=== PATIENT | female | born 1970 | race Caucasian/White ===

== ENCOUNTER 2019-09-06 09:45 | Inpatient (IN) | payer OTHER ==
--- NOTE | 2019-09-06 10:03 | BHS.RME ---
Substance Use & Tx History - Substance Use History Alcohol Substance amount: 1 pint vodka and beers Frequency of use: Daily Substance route: Oral Date of Last Use: 09/06/19 Cocaine-Crack Substance amount: $50 Frequency of use: Daily Substance route: Smoking Date of Last Use: 09/05/19 Nicotine Substance amount: 1 pack Frequency of use: Daily Substance route: Smoking Date of Last Use: 09/06/19 CIWA Nausea/Vomitin-Int. Nausea w/Dry Heave Muscle Tremors: 2 Anxiety: 2 Agitation: 2 Paroxysmal Sweats: 1-Minimal Palms Moist Orientation: 0-Oriented Tacttile Disturbances: 1-Very Mild Itch/Numbness Auditory Disturbances: 0-None Visual Disturbances: 0-None Headache: 2-Mild CIWA-Ar Total Score: 14
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
[2019-09-06] MEDS ORDERED: ACETAMINOPHEN 325 MG TABLET (FP) PO PRN (11:39)
[2019-09-06] MEDS ORDERED: MAGNESIUM CITRATE 300 ML BOTTLE PO PRN (11:39)
[2019-09-06] MEDS ORDERED: NICOTINE POLACRILEX 2 MG GUM BUC PRN (11:39)
[2019-09-06] MEDS ORDERED: IBUPROFEN 400 MG TABLET (FP) PO PRN (11:39)
[2019-09-06] MEDS ORDERED: BISMUTH SUBSALICYLATE 524 MG/30 ML UD PO PRN (11:39)
[2019-09-06] MEDS ORDERED: METHOCARBAMOL 500 MG TABLET PO PRN (11:39)
[2019-09-06] MEDS ORDERED: MAG HYDROX/AL HYDROX/SIMETH 30 ML UNIT-DOSE CUP PO PRN (11:39)
[2019-09-06] MEDS ORDERED: chlordiazePOXIDE HCL 25 MG CAPSULE PO PRN (11:39)
[2019-09-06] MEDS ORDERED: MENTHOL/PHENOL 1 EACH UD MM PRN (11:39)
[2019-09-06] MEDS ORDERED: MAGNESIUM HYDROX 2400MG/30ML ORAL SUSPENSION 30 ML CUP PO PRN (11:39)
[2019-09-06 12:10] VITALS: BMI 17.7
[2019-09-06] MEDS: PRENATAL VITAMINS W/ FOLIC ACID TABLET (FP) PO SCH (12:56)
[2019-09-06] MEDS: NICOTINE 21 MG/24 HOURS TOPICAL PATCH TD SCH (13:12)
--- NOTE | 2019-09-06 13:16 | EKG ---
Test Reason : Blood Pressure : / mmHG Vent. Rate : 084 BPM Atrial Rate : 084 BPM P-R Int : 166 ms QRS Dur : 098 ms QT Int : 366 ms P-R-T Axes : 069 068 068 degrees QTc Int : 432 ms NORMAL SINUS RHYTHM EARLY REPOLARIZATION NO PREVIOUS ECGS AVAILABLE Confirmed by CHRISTIANO PEREZ MD ([id number]) on 09/06/2019 1:16:13 PM Referred By: Confirmed By:CHRISTIANO PEREZ MD
[2019-09-06] MEDS ORDERED: hydrOXYzine PAMOATE 25 MG CAPSULE (FP) PO SCH (14:00)
[2019-09-06 14:22] LABS: HEMATOCRIT 33.4 % (32.4-45.2); HEMOGLOBIN 10.8 GM/dL (10.7-15.3); MCH 27.6 pg (25.7-33.7); MCHC 32.2 g/dl (32.0-36.0); MEAN CELL VOLUME 85.5 fl (80-96); MEAN PLT VOLUME 8.1 fl (7.5-11.1); PLATELET COUNT 264 K/MM3 (134-434); RDW 15.5 % (11.6-15.6); WHITE BLOOD COUNT 6.2 K/mm3 (4.0-10.0)
[2019-09-06 14:32] LABS: ALBUMIN 3.7 g/dl (3.4-5.0); CALCIUM 8.5 mg/dL (8.5-10.1); CREATININE 0.6 mg/dL (0.55-1.3); POTASSIUM 3.2 mmol/L (3.5-5.1); TOT PROT 6.6 g/dl (6.4-8.2)
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
[2019-09-06] MEDS ORDERED: hydrOXYzine PAMOATE 25 MG CAPSULE (FP) PO PRN (15:31)
[2019-09-06] MEDS: chlordiazePOXIDE HCL 25 MG CAPSULE PO SCH ×2 (18:23→22:11)
[2019-09-06] MEDS: ACETAMINOPHEN 325 MG TABLET (FP) PO PRN (18:25)
[2019-09-06] MEDS ORDERED: MELATONIN 5 MG TABLETS PO SCH (22:00)
[2019-09-06] MEDS: THIAMINE HCL 100 MG TABLET (FP) PO SCH (22:11)
[2019-09-06] MEDS: MELATONIN 5 MG TABLETS PO PRN (22:11)
[2019-09-07] MEDS: chlordiazePOXIDE HCL 25 MG CAPSULE PO SCH ×4 (05:39→22:44)
[2019-09-07] MEDS: PRENATAL VITAMINS W/ FOLIC ACID TABLET (FP) PO SCH (10:25)
[2019-09-07] MEDS: NICOTINE 21 MG/24 HOURS TOPICAL PATCH TD SCH (10:25)
[2019-09-07] MEDS ORDERED: POTASSIUM CHLORIDE TABS 20 MEQ TABLET.ER (FP) PO ONE (11:07)
[2019-09-07] MEDS: ONDANSETRON *ODT* 4 MG TABLET SL PRN ×2 (11:44→16:30)
[2019-09-07 13:54] LABS: PH,URINE 5.5 (5.0-8.0); URINE APPEARANCE Clear; URINE BILIRUBIN Negative (NEGATIVE); URINE COLOR Yellow; URINE GLUCOSE (UA) Negative (NEGATIVE); URINE KETONE Negative (NEGATIVE); URINE LEUK ESTERASE Negative (NEGATIVE); URINE NITRITE Positive (NEGATIVE); URINE PROTEIN Negative (NEGATIVE); URINE UROBILINOGEN 0.2 mg/dL (0.2-1.0)
[2019-09-07] MEDS ORDERED: TRIMETHOBENZAMIDE HCL 200MG/2ML INJ IM ONE (17:38)
--- NOTE | 2019-09-07 17:41 | PN ---
S CIWA - CIWA Score Nausea/Vomitin Muscle Tremors: 2 Anxiety: 3 Agitation: 2 Paroxysmal Sweats: No Perspiration Orientation: 0-Oriented Tacttile Disturbances: 0-None Auditory Disturbances: 0-None Visual Disturbances: 0-None Headache: 0-None Present CIWA-Ar Total Score: 9 BHS Progress Note (SOAP) Subjective: Anxious, Sweating, Tremors. Objective: Patient A & O X 3, Observed Ambulating on Detox Unit Unassisted. In No Acute Distress. 09/07/19 17:39 Vital Signs Temperature 97.7 F 09/07/19 12:45 Pulse Rate 80 09/07/19 12:45 Respiratory Rate 20 09/07/19 12:45 Blood Pressure 103/64 09/07/19 12:45 O2 Sat by Pulse Oximetry (%) 100 09/07/19 12:45 Laboratory Tests 09/06/19 09/06/19 09/06/19 12:05 12:05 12:05 WBC 6.2 RBC 3.90 Hgb 10.8 Hct 33.4 MCV 85.5 MCH 27.6 MCHC 32.2 RDW 15.5 Plt Count 264 MPV 8.1 Sodium 147 H Potassium 3.2 L Chloride 116 H Carbon Dioxide 20 L Anion Gap 12 BUN 10.0 Creatinine 0.6 Est GFR (CKD-EPI)AfAm 126.69 Est GFR (CKD-EPI)NonAf 109.31 Random Glucose 55 L Calcium 8.5 Total Bilirubin 1.0 AST 20 ALT 24 Alkaline Phosphatase 67 Total Protein 6.6 Albumin 3.7 Urine Color Urine Appearance Urine pH Ur Specific [place] Urine Protein Urine Glucose (UA) Urine Ketones Urine Blood Urine Nitrite Urine Bilirubin Urine Urobilinogen Ur Leukocyte Esterase Syphilis Serology Non-reactive HIV Ag/Ab Combo Qual 09/07/19 09/07/19 06:00 10:10 WBC RBC Hgb Hct MCV MCH MCHC RDW Plt Count MPV Sodium Potassium Chloride Carbon Dioxide Anion Gap BUN Creatinine Est GFR (CKD-EPI)AfAm Est GFR (CKD-EPI)NonAf Random Glucose Calcium Total Bilirubin AST ALT Alkaline Phosphatase Total Protein Albumin Urine Color Yellow Urine Appearance Clear Urine pH 5.5 Ur Specific [place] 1.020 Urine Protein Negative Urine Glucose (UA) Negative Urine Ketones Negative Urine Blood Trace-intact Urine Nitrite Positive Urine Bilirubin Negative Urine Urobilinogen 0.2 Ur Leukocyte Esterase Negative Syphilis Serology HIV Ag/Ab Combo Qual Negative Lab Results Noted. Assessment: 09/07/19 17:40 WITHDRAWAL SYMPTOMS HYPOKALEMIA UTI 09/07/19 18:12 Plan: Continue Detox. K-dUR, 40 meq orally X 1 dose today, re-check K level tomorrow AM to see for effect. Patient reports sensation of discomfort when urinating over last 2-3 days. UA Nitrite Result noted to be 'Positive.' Macrodantin, 50 mg Q6HPO ordered for treatment of possible UTI. Patient also advised to increase Daily Oral Water Intake.
[2019-09-07] MEDS: ACETAMINOPHEN 325 MG TABLET (FP) PO PRN (22:21)
[2019-09-07] MEDS: THIAMINE HCL 100 MG TABLET (FP) PO SCH (22:44)
[2019-09-08] MEDS: NITROFURANTOIN MACROCRYSTAL 50 MG CAPSULE (FP) PO SCH ×5 (01:29→23:03)
[2019-09-08] MEDS: chlordiazePOXIDE HCL 25 MG CAPSULE PO SCH ×4 (06:06→22:17)
[2019-09-08] MEDS: PRENATAL VITAMINS W/ FOLIC ACID TABLET (FP) PO SCH (10:19)
[2019-09-08] MEDS: NICOTINE 21 MG/24 HOURS TOPICAL PATCH TD SCH (10:19)
--- NOTE | 2019-09-08 16:21 | PN ---
S CIWA - CIWA Score Nausea/Vomitin-Mild Nausea/No Vomiting Muscle Tremors: 2 Anxiety: 2 Agitation: 2 Paroxysmal Sweats: 2 Orientation: 0-Oriented Tacttile Disturbances: 0-None Auditory Disturbances: 0-None Visual Disturbances: 0-None Headache: 0-None Present CIWA-Ar Total Score: 9 BHS Progress Note (SOAP) Subjective: Feels ok, medication is working. Patient not wearing mask but placed mask on when scientific technical writer encouraged her to wear mask. Objective: 09/08/19 16:17 Last Vital Signs Temp Pulse Resp BP Pulse Ox 98.3 F 80 19 99/64 100 09/08/19 12:59 09/08/19 12:59 09/08/19 12:59 09/08/19 12:59 09/08/19 12:59 Laboratory Tests 09/06/19 09/06/19 09/06/19 12:05 12:05 12:05 WBC 6.2 RBC 3.90 Hgb 10.8 Hct 33.4 MCV 85.5 MCH 27.6 MCHC 32.2 RDW 15.5 Plt Count 264 MPV 8.1 Sodium 147 H Potassium 3.2 L Chloride 116 H Carbon Dioxide 20 L Anion Gap 12 BUN 10.0 Creatinine 0.6 Est GFR (CKD-EPI)AfAm 126.69 Est GFR (CKD-EPI)NonAf 109.31 Random Glucose 55 L Calcium 8.5 Total Bilirubin 1.0 AST 20 ALT 24 Alkaline Phosphatase 67 Total Protein 6.6 Albumin 3.7 Urine Color Urine Appearance Urine pH Ur Specific [place] Urine Protein Urine Glucose (UA) Urine Ketones Urine Blood Urine Nitrite Urine Bilirubin Urine Urobilinogen Ur Leukocyte Esterase Syphilis Serology Non-reactive COVID-19 ([facility]) HIV Ag/Ab Combo Qual 09/06/19 09/07/19 09/07/19 14:50 06:00 10:10 WBC RBC Hgb Hct MCV MCH MCHC RDW Plt Count MPV Sodium Potassium Chloride Carbon Dioxide Anion Gap BUN Creatinine Est GFR (CKD-EPI)AfAm Est GFR (CKD-EPI)NonAf Random Glucose Calcium Total Bilirubin AST ALT Alkaline Phosphatase Total Protein Albumin Urine Color Yellow Urine Appearance Clear Urine pH 5.5 Ur Specific [place] 1.020 Urine Protein Negative Urine Glucose (UA) Negative Urine Ketones Negative Urine Blood Trace-intact Urine Nitrite Positive Urine Bilirubin Negative Urine Urobilinogen 0.2 Ur Leukocyte Esterase Negative Syphilis Serology COVID-19 ([facility]) Not detected HIV Ag/Ab Combo Qual Negative 09/08/19 07:30 WBC RBC Hgb Hct MCV MCH MCHC RDW Plt Count MPV Sodium Potassium 3.9 Chloride Carbon Dioxide Anion Gap BUN Creatinine Est GFR (CKD-EPI)AfAm Est GFR (CKD-EPI)NonAf Random Glucose Calcium Total Bilirubin AST ALT Alkaline Phosphatase Total Protein Albumin Urine Color Urine Appearance Urine pH Ur Specific [place] Urine Protein Urine Glucose (UA) Urine Ketones Urine Blood Urine Nitrite Urine Bilirubin Urine Urobilinogen Ur Leukocyte Esterase Syphilis Serology COVID-19 ([facility]) HIV Ag/Ab Combo Qual Labs reviewed: abnormal UA (showing UTI due to + nitrite) Assessment: 09/08/19 16:20 Withdrawal sxs Noted with acute UTI Plan: Continue detox Encourage PO water hydration Acute UTI: already on macrobid, send urine cx
[2019-09-08] MEDS: ACETAMINOPHEN 325 MG TABLET (FP) PO PRN (16:30)
[2019-09-08] MEDS: THIAMINE HCL 100 MG TABLET (FP) PO SCH (22:17)
[2019-09-08] MEDS: MELATONIN 5 MG TABLETS PO PRN (22:18)
[2019-09-09] MEDS ORDERED: chlordiazePOXIDE HCL 10 MG CAPSULE PO PRN
[2019-09-09] MEDS: NITROFURANTOIN MACROCRYSTAL 50 MG CAPSULE (FP) PO SCH ×3 (05:33→18:28)
[2019-09-09] MEDS: chlordiazePOXIDE HCL 10 MG CAPSULE PO SCH ×4 (05:33→23:17)
[2019-09-09] MEDS: NICOTINE 21 MG/24 HOURS TOPICAL PATCH TD SCH (10:24)
[2019-09-09] MEDS: PRENATAL VITAMINS W/ FOLIC ACID TABLET (FP) PO SCH (10:25)
--- NOTE | 2019-09-09 10:46 | PN ---
S CIWA - CIWA Score Nausea/Vomitin-No Nausea/No Vomiting Muscle Tremors: 2 Anxiety: 1-Mildly Anxious Agitation: 1-Slight > Activity Paroxysmal Sweats: No Perspiration Orientation: 0-Oriented Tacttile Disturbances: 0-None Auditory Disturbances: 0-None Visual Disturbances: 0-None Headache: 0-None Present CIWA-Ar Total Score: 4 BHS Progress Note (SOAP) Subjective: feeling much better little anxiety Objective: 09/09/19 10:45 Vital Signs Temperature 96.3 F L 09/09/19 08:36 Pulse Rate 72 09/09/19 08:36 Respiratory Rate 18 09/09/19 08:36 Blood Pressure 118/73 09/09/19 08:36 O2 Sat by Pulse Oximetry (%) 96 09/09/19 06:13 Laboratory Tests 09/06/19 09/06/19 09/06/19 12:05 12:05 12:05 WBC 6.2 RBC 3.90 Hgb 10.8 Hct 33.4 MCV 85.5 MCH 27.6 MCHC 32.2 RDW 15.5 Plt Count 264 MPV 8.1 Sodium 147 H Potassium 3.2 L Chloride 116 H Carbon Dioxide 20 L Anion Gap 12 BUN 10.0 Creatinine 0.6 Est GFR (CKD-EPI)AfAm 126.69 Est GFR (CKD-EPI)NonAf 109.31 Random Glucose 55 L Calcium 8.5 Total Bilirubin 1.0 AST 20 ALT 24 Alkaline Phosphatase 67 Total Protein 6.6 Albumin 3.7 Urine Color Urine Appearance Urine pH Ur Specific [place] Urine Protein Urine Glucose (UA) Urine Ketones Urine Blood Urine Nitrite Urine Bilirubin Urine Urobilinogen Ur Leukocyte Esterase Syphilis Serology Non-reactive COVID-19 ([facility]) HIV Ag/Ab Combo Qual 09/06/19 09/07/19 09/07/19 14:50 06:00 10:10 WBC RBC Hgb Hct MCV MCH MCHC RDW Plt Count MPV Sodium Potassium Chloride Carbon Dioxide Anion Gap BUN Creatinine Est GFR (CKD-EPI)AfAm Est GFR (CKD-EPI)NonAf Random Glucose Calcium Total Bilirubin AST ALT Alkaline Phosphatase Total Protein Albumin Urine Color Yellow Urine Appearance Clear Urine pH 5.5 Ur Specific [place] 1.020 Urine Protein Negative Urine Glucose (UA) Negative Urine Ketones Negative Urine Blood Trace-intact Urine Nitrite Positive Urine Bilirubin Negative Urine Urobilinogen 0.2 Ur Leukocyte Esterase Negative Syphilis Serology COVID-19 ([facility]) Not detected HIV Ag/Ab Combo Qual Negative 09/08/19 07:30 WBC RBC Hgb Hct MCV MCH MCHC RDW Plt Count MPV Sodium Potassium 3.9 Chloride Carbon Dioxide Anion Gap BUN Creatinine Est GFR (CKD-EPI)AfAm Est GFR (CKD-EPI)NonAf Random Glucose Calcium Total Bilirubin AST ALT Alkaline Phosphatase Total Protein Albumin Urine Color Urine Appearance Urine pH Ur Specific [place] Urine Protein Urine Glucose (UA) Urine Ketones Urine Blood Urine Nitrite Urine Bilirubin Urine Urobilinogen Ur Leukocyte Esterase Syphilis Serology COVID-19 ([facility]) HIV Ag/Ab Combo Qual aaox3 ambulating no acute distress Assessment: 09/09/19 10:45 mild withdrawals Plan: continue detox increase fluids
[2019-09-09] MEDS: ONDANSETRON *ODT* 4 MG TABLET SL PRN (17:49)
[2019-09-09] MEDS ORDERED: TRIMETHOBENZAMIDE HCL 200MG/2ML INJ IM PRN (19:05)
[2019-09-09] MEDS: THIAMINE HCL 100 MG TABLET (FP) PO SCH (23:18)
[2019-09-10] MEDS: NITROFURANTOIN MACROCRYSTAL 50 MG CAPSULE (FP) PO SCH ×2 (00:35→05:32)
[2019-09-10] MEDS ORDERED: chlordiazePOXIDE HCL 10 MG CAPSULE PO SCH (05:00)
[2019-09-10 09:51] VITALS: PULSE 83; TEMP 98.3
[2019-09-10] MEDS: NICOTINE 21 MG/24 HOURS TOPICAL PATCH TD SCH (10:16)
[2019-09-10] MEDS: PRENATAL VITAMINS W/ FOLIC ACID TABLET (FP) PO SCH (10:16)
--- NOTE | 2019-09-10 10:58 | PN ---
S CIWA - CIWA Score Nausea/Vomitin-No Nausea/No Vomiting Muscle Tremors: None Anxiety: 1-Mildly Anxious Agitation: 1-Slight > Activity Paroxysmal Sweats: No Perspiration Orientation: 0-Oriented Tacttile Disturbances: 0-None Auditory Disturbances: 0-None Visual Disturbances: 0-None Headache: 0-None Present CIWA-Ar Total Score: 2 BHS Progress Note (SOAP) Subjective: feeling better little anxious Objective: 09/10/19 10:57 Vital Signs Temperature 98.3 F 09/10/19 08:33 Pulse Rate 83 09/10/19 08:33 Respiratory Rate 17 09/10/19 08:33 Blood Pressure 54/45 L 09/10/19 08:33 O2 Sat by Pulse Oximetry (%) 96 09/10/19 05:52 Laboratory Tests 09/06/19 09/06/19 09/06/19 12:05 12:05 12:05 WBC 6.2 RBC 3.90 Hgb 10.8 Hct 33.4 MCV 85.5 MCH 27.6 MCHC 32.2 RDW 15.5 Plt Count 264 MPV 8.1 Sodium 147 H Potassium 3.2 L Chloride 116 H Carbon Dioxide 20 L Anion Gap 12 BUN 10.0 Creatinine 0.6 Est GFR (CKD-EPI)AfAm 126.69 Est GFR (CKD-EPI)NonAf 109.31 Random Glucose 55 L Calcium 8.5 Total Bilirubin 1.0 AST 20 ALT 24 Alkaline Phosphatase 67 Total Protein 6.6 Albumin 3.7 Urine Color Urine Appearance Urine pH Ur Specific [place] Urine Protein Urine Glucose (UA) Urine Ketones Urine Blood Urine Nitrite Urine Bilirubin Urine Urobilinogen Ur Leukocyte Esterase Syphilis Serology Non-reactive COVID-19 ([facility]) HIV Ag/Ab Combo Qual 09/06/19 09/07/19 09/07/19 14:50 06:00 10:10 WBC RBC Hgb Hct MCV MCH MCHC RDW Plt Count MPV Sodium Potassium Chloride Carbon Dioxide Anion Gap BUN Creatinine Est GFR (CKD-EPI)AfAm Est GFR (CKD-EPI)NonAf Random Glucose Calcium Total Bilirubin AST ALT Alkaline Phosphatase Total Protein Albumin Urine Color Yellow Urine Appearance Clear Urine pH 5.5 Ur Specific [place] 1.020 Urine Protein Negative Urine Glucose (UA) Negative Urine Ketones Negative Urine Blood Trace-intact Urine Nitrite Positive Urine Bilirubin Negative Urine Urobilinogen 0.2 Ur Leukocyte Esterase Negative Syphilis Serology COVID-19 ([facility]) Not detected HIV Ag/Ab Combo Qual Negative 09/08/19 07:30 WBC RBC Hgb Hct MCV MCH MCHC RDW Plt Count MPV Sodium Potassium 3.9 Chloride Carbon Dioxide Anion Gap BUN Creatinine Est GFR (CKD-EPI)AfAm Est GFR (CKD-EPI)NonAf Random Glucose Calcium Total Bilirubin AST ALT Alkaline Phosphatase Total Protein Albumin Urine Color Urine Appearance Urine pH Ur Specific [place] Urine Protein Urine Glucose (UA) Urine Ketones Urine Blood Urine Nitrite Urine Bilirubin Urine Urobilinogen Ur Leukocyte Esterase Syphilis Serology COVID-19 ([facility]) HIV Ag/Ab Combo Qual aaox3 ambulating no acute distress Assessment: 09/10/19 10:57 mild withdrawals Plan: continue detox d/c in am
[2019-09-10 11:07] VITALS: BP 98/64
[2019-09-11] MEDS ORDERED: chlordiazePOXIDE HCL 10 MG CAPSULE PO ONE (05:00)
== END 2019-09-10 11:39 | disposition home or self-care (01) | DRG 774 ==
LOC: YASAS 09:45 → Y6N 12:29
PROVIDERS: ADMIT Allergy & Immunology; ATTEND Allergy & Immunology
PROC: HZ2ZZZZ Detoxification Services for Substance Abuse Treatment (ICD-10-PCS; principal; 2019-09-06)
DX: F10.230 Alcohol dependence with withdrawal, uncomplicated (principal); F14.20 Cocaine dependence, uncomplicated; F17.210 Nicotine dependence, cigarettes, uncomplicated; F19.24 Other psychoactive substance dependence with psychoactive substance-induced mood disorder; F19.282 Other psychoactive substance dependence with psychoactive substance-induced sleep disorder; F31.89 Other bipolar disorder; E87.6 Hypokalemia; N39.0 Urinary tract infection, site not specified; Z85.42 Personal history of malignant neoplasm of other parts of uterus; Z59.0 Homelessness
CPT/HCPCS: 36415; 80053; 81003; 84132; 85027; 86780; 87086; 87389; 93005; 93010; Q0162; U0003

== ENCOUNTER 2019-10-17 12:46 | Inpatient (IN) | payer OTHER ==
--- NOTE | 2019-10-17 13:42 | BHS.RME ---
Substance Use & Tx History - Substance Use History Alcohol Substance amount: 1 pint vodka +7-8 40 oz beers Frequency of use: Daily Substance route: Oral Date of Last Use: 10/17/19 Cocaine-Crack Substance amount: $80 Frequency of use: Daily Substance route: Smoking Date of Last Use: 10/16/19 Nicotine Substance amount: 1 pack Frequency of use: Daily Substance route: Smoking Date of Last Use: 10/17/19 Physical/Psych/Mental Status - Behavior General Behavior: Increased activity (restlessness, agitation) Eye Contact: Normal - Cooperativeness Cooperativeness: Cooperative - Thinking Thought Processes: Tight, Logical, Goal Directed - Physical Health Problems Is patient presently having any pain?: No Does patient presently have any injuries (include location): No Does patient currently have a fever: No Is patient : No CIWA Nausea/Vomitin Muscle Tremors: 3 Anxiety: 4-Mod. Anxious/Guarded Agitation: 3 Paroxysmal Sweats: 1-Minimal Palms Moist Orientation: 0-Oriented Tacttile Disturbances: 0-None Auditory Disturbances: 0-None Visual Disturbances: 0-None Headache: 2-Mild CIWA-Ar Total Score: 15
--- NOTE | 2019-10-17 15:50 | HP ---
CIWA Score Nausea/Vomitin Muscle Tremors: 3 Anxiety: 4-Mod. Anxious/Guarded Agitation: 3 Paroxysmal Sweats: 1-Minimal Palms Moist Orientation: 0-Oriented Tacttile Disturbances: 0-None Auditory Disturbances: 0-None Visual Disturbances: 0-None Headache: 2-Mild CIWA-Ar Total Score: 15 - Admission Criteria OASAS Guidelines: Admission for Medically Managed Detox: Requires at least one of the followin. CIWA greater than 12 2. Seizures within the past 24 hours 3. Delirium tremens within the past 24 hours 4. Hallucinations within the past 24 hours 5. Acute intervention needed for co occurring medical disorder 6. Acute intervention needed for co occurring psychiatric disorder 7. Severe withdrawal that cannot be handled at a lower level of care (continued vomiting, continued diarrhea, abnormal vital signs) requiring intravenous medication and/or fluids 8. Patient presents the following: CIWA greater than 12 Admission Criteria Met: Admission criteria met Admitting History and Physical - Admission Chief Complaint: Patient is a 48 year old female with history of bipolar disorder, depression, alcohol use disorder, cocaine dependence, presents for detox. History of Present Illness: Patient is a 48 year old female with history of bipolar disorder, depression, alcohol use disorder, cocaine dependence, presents for detox. PMH: does not endorse PSH: cholecystectomy Social: homeless, lives in assisted. has four children. Psych: bipolar, depression Legal: denies - Substance Use History Alcohol Substance amount: 1 pint vodka +7-8 40 oz beers Frequency of use: Daily Substance route: Oral Date of Last Use: 10/17/19 Cocaine-Crack Substance amount: $80 Frequency of use: Daily Substance route: Smoking Date of Last Use: 10/16/19 Nicotine Substance amount: 1 pack Frequency of use: Daily Substance route: Smoking Date of Last Use: 10/17/19 History Source: Patient Limitations to Obtaining History: No Limitations - Smoking History Smoking history: Current every day smoker Have you smoked in the past 12 months: Yes Aproximately how many cigarettes per day: 10 Admission ROS [facility] - [facility] Chief Complaint: Patient is a 48 year old female with history of bipolar disorder, depression, alcohol use disorder, cocaine dependence, presents for detox. Allergies/Adverse Reactions: Allergies Allergy/AdvReac Type Severity Reaction Status Date / Time Penicillins Allergy Verified 09/06/19 11:39 Exam Limitations: No Limitations - Ebola screening Have you traveled outside of the country in the last 21 days: No Have you been sick,other than usual withdrawal symptoms: No Do you have a fever: No - Review of Systems Constitutional: No Symptoms Reported EENT: reports: Blurred Vision (endorses that she requires glasses, however re cently broke them) Respiratory: denies: Cough, Shortness of Breath Cardiac: denies: Chest Pain, Palpitations GI: denies: Nausea, Vomiting, Abdominal cramping : denies: Burning, Dysuria Musculoskeletal: denies: Back Pain, Joint Pain Integumentary: reports: Other (hypopigmentation macules on bilateral forearms). denies: Lesions Neuro: reports: Headache. denies: Numbness, Weakness Hematology: denies: Blood Clots, Easy Bleeding Psychiatric: reports: Depressed (denies suicidal, homicidal ideation) Patient History - Patient Medical History Hx Asthma: No Hx Chronic Obstructive Pulmonary Disease (COPD): No Hx Cardiac Disorders: No Hx Hypertension: No Hx Seizures: No Hx Diabetes: No Hx Gastrointestinal Disorders: No Hx Genitourinary Disorders: No Hx Sexually Transmitted Disorders: No Hx Renal Disease (ESRD): No Hx Depression: Yes Hx Suicide Attempt: No Hx Schizophrenia: No - Patient Surgical History Past Surgical History: No Hx Neurologic Surgery: No Hx Cataract Extraction: No Hx Cardiac Surgery: No Hx Lung Surgery: No Hx Breast Surgery: No Hx Breast Biopsy: No Hx Abdominal Surgery: No Hx Appendectomy: No Hx Cholecystectomy: Yes Hx Genitourinary Surgery: No Hx Section: No Hx Orthopedic Surgery: No Hx Hysterectomy: No Anesthesia Reaction: No - Reproductive History Patient is a Female of Child Bearing Age (11 -55 yrs old): Yes Patient : No - Smoking Cessation Smoking history: Current every day smoker Have you smoked in the past 12 months: Yes Aproximately how many cigarettes per day: 20 Hx Chewing Tobacco Use: No Initiated information on smoking cessation: Yes 'Breaking Loose' booklet given: 10/17/19 - Substance & Tx. History Hx Alcohol Use: Yes Hx Substance Use: Yes Substance Use Type: Cocaine Hx Substance Use Treatment: Yes - Substances abused Alcohol Substance route: Oral Frequency: Daily Amount used: 1 pint, and 7-8 beers daily Age of first use: 38 Date of last use: 10/17/19 Crack Substance route: Smoking Frequency: Daily Amount used: $80 perday Age of first use: 44 Date of last use: 10/17/19 Admission Physical Exam [facility] - Physical General Appearance: Yes: Mild Distress, Anxious HEENTM: Yes: EOMI, Normocephalic, OVIDIO Respiratory: Yes: Lungs Clear, Normal Breath Sounds, No Respiratory Distress, No Accessory Muscle Use Neck: Yes: Supple Cardiology: Yes: Regular Rhythm, Regular Rate, S1, S2 Abdominal: Yes: Normal Bowel Sounds, Non Tender, Flat, Soft Musculoskeletal: Yes: Within Normal Limits, full range of Motion Extremities: Yes: Within Normal Limits, Normal Range of Motion Neurological: Yes: gold cutter II-XII NML intact, Alert, Motor Strength 5/5 Integumentary: Yes: Dry, Warm, Other (hypopigmented macules noted along bilateral forearms) - Diagnostic (1) Alcohol dependence with withdrawal, uncomplicated Current Visit: Yes Status: Acute (2) Bipolar 1 disorder Current Visit: No Status: Chronic (3) Cocaine dependence Current Visit: No Status: Chronic Qualifiers: Substance use status: uncomplicated Qualified Code(s): F14.20 - Cocaine dependence, uncomplicated (4) Nicotine dependence Current Visit: No Status: Chronic Qualifiers: Nicotine product type: cigarettes Substance use status: uncomplicated Qualified Code(s): F17.210 - Nicotine dependence, cigarettes, uncomplicated Cleared for Admission [facility] - Detox or Rehab [facility] Level of Care: Medically Managed Detox Regimen/Protocol: Librium Claeared for Rehab Admission: No Screened but not Admitted - Documentation of Visit Screened but not Admitted: No Breathalyzer - Breathalyzer Breathalyzer: 0.081 Urine Drug Screen - Test Device Lot number: [id number] Expiration date: 10/14/21 - Control Is test valid?: Yes - Results Drug screen NEGATIVE: No Urine drug screen results: [facility]TON-Cocaine Inpatient Rehab Admission - Rehab Decision to Admit Inpatient rehab admission?: No
[2019-10-17] MEDS ORDERED: MAGNESIUM CITRATE 300 ML BOTTLE PO PRN (15:53)
[2019-10-17] MEDS ORDERED: chlordiazePOXIDE HCL 25 MG CAPSULE PO PRN (15:53)
[2019-10-17] MEDS ORDERED: IBUPROFEN 400 MG TABLET (FP) PO PRN (15:53)
[2019-10-17] MEDS ORDERED: MENTHOL/PHENOL 1 EACH UD MM PRN (15:53)
[2019-10-17] MEDS ORDERED: MAGNESIUM HYDROX 2400MG/30ML ORAL SUSPENSION 30 ML CUP PO PRN (15:53)
[2019-10-17] MEDS ORDERED: BISMUTH SUBSALICYLATE 524 MG/30 ML UD PO PRN (15:53)
[2019-10-17] MEDS ORDERED: ACETAMINOPHEN 325 MG TABLET (FP) PO PRN (15:53)
[2019-10-17] MEDS ORDERED: NICOTINE POLACRILEX 2 MG GUM BUC PRN (15:53)
[2019-10-17] MEDS ORDERED: MAG HYDROX/AL HYDROX/SIMETH 30 ML UNIT-DOSE CUP PO PRN (15:53)
[2019-10-17 16:46] VITALS: BMI 16.9
[2019-10-17] MEDS: hydrOXYzine PAMOATE 25 MG CAPSULE (FP) PO SCH ×2 (18:29→22:08)
[2019-10-17] MEDS: chlordiazePOXIDE HCL 25 MG CAPSULE PO SCH ×2 (18:32→22:49)
[2019-10-17] MEDS: NICOTINE 21 MG/24 HOURS TOPICAL PATCH TD SCH (18:34)
[2019-10-17] MEDS: MELATONIN 5 MG TABLETS PO SCH (22:08)
[2019-10-17] MEDS: THIAMINE HCL 100 MG TABLET (FP) PO SCH (22:08)
[2019-10-18] MEDS: hydrOXYzine PAMOATE 25 MG CAPSULE (FP) PO SCH ×5 (06:23→22:25)
[2019-10-18] MEDS: chlordiazePOXIDE HCL 25 MG CAPSULE PO SCH ×4 (06:23→22:26)
[2019-10-18] MEDS: NICOTINE 21 MG/24 HOURS TOPICAL PATCH TD SCH (10:16)
[2019-10-18] MEDS: PRENATAL VITAMINS W/ FOLIC ACID TABLET (FP) PO SCH (10:16)
[2019-10-18] MEDS: ACETAMINOPHEN 325 MG TABLET (FP) PO PRN (10:17)
--- NOTE | 2019-10-18 10:50 | PN ---
S CIWA - CIWA Score Nausea/Vomitin Muscle Tremors: 2 Anxiety: 2 Agitation: 2 Paroxysmal Sweats: No Perspiration Orientation: 0-Oriented Tacttile Disturbances: 1-Very Mild Itch/Numbness Auditory Disturbances: 0-None Visual Disturbances: 0-None Headache: 2-Mild CIWA-Ar Total Score: 11 S Progress Note (SOAP) Subjective: alert,irritable,anxious,interrupted sleep,tremor,pain in the body and back,nausea Objective: 10/18/19 10:50 Vital Signs Temperature 97.3 F L 10/18/19 08:45 Pulse Rate 66 10/18/19 08:45 Respiratory Rate 16 10/18/19 08:45 Blood Pressure 95/66 10/18/19 08:45 O2 Sat by Pulse Oximetry (%) 99 10/18/19 05:32 Laboratory Last Values POC Urine HCG, Qual Negative 10/17/19 15:29 labs pending Assessment: 10/18/19 10:50 withdrawal symptom Plan: continue detox librium regimen
[2019-10-18 10:52] LABS: HEMATOCRIT 36.5 % (32.4-45.2); HEMOGLOBIN 11.7 GM/dL (10.7-15.3); MCH 27.9 pg (25.7-33.7); MCHC 32.1 g/dl (32.0-36.0); MEAN CELL VOLUME 86.7 fl (80-96); MEAN PLT VOLUME 8.1 fl (7.5-11.1); PLATELET COUNT 275 K/MM3 (134-434); RBC 4.21 M/mm3 (3.60-5.2); RDW 15.2 % (11.6-15.6); WHITE BLOOD COUNT 5.9 K/mm3 (4.0-10.0)
[2019-10-18 11:11] LABS: ALBUMIN 3.2 g/dl (3.4-5.0); BILIRUBIN,TOTAL 0.2 mg/dL (0.2-1); CALCIUM 8.4 mg/dL (8.5-10.1); CREATININE 0.7 mg/dL (0.55-1.3); POTASSIUM 4.4 mmol/L (3.5-5.1)
[2019-10-18 11:13] LABS: BLOOD UREA NITROGEN 14.8 mg/dL (7-18)
--- NOTE | 2019-10-18 13:39 | PN ---
Teaching Attending Note Name of Resident: Shakir Goodwin ATTENDING PHYSICIAN STATEMENT I saw and evaluated the patient. I reviewed the resident's note and discussed the case with the resident. I agree with the resident's findings and plan as documented. SUBJECTIVE: OBJECTIVE: ASSESSMENT AND PLAN: 1. Alcohol use disorder Plan 1. Librium detox
[2019-10-18] MEDS: METHOCARBAMOL 500 MG TABLET PO PRN (15:12)
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
[2019-10-18] MEDS: ONDANSETRON *ODT* 4 MG TABLET SL PRN (21:52)
[2019-10-18] MEDS: THIAMINE HCL 100 MG TABLET (FP) PO SCH (22:25)
[2019-10-18] MEDS: MELATONIN 5 MG TABLETS PO SCH (22:25)
[2019-10-19] MEDS: hydrOXYzine PAMOATE 25 MG CAPSULE (FP) PO SCH ×5 (06:55→22:13)
[2019-10-19] MEDS: chlordiazePOXIDE HCL 25 MG CAPSULE PO SCH ×4 (06:56→22:13)
[2019-10-19] MEDS ORDERED: MASKS NR ONE (08:47)
[2019-10-19] MEDS: ONDANSETRON *ODT* 4 MG TABLET SL PRN (10:23)
[2019-10-19] MEDS: PRENATAL VITAMINS W/ FOLIC ACID TABLET (FP) PO SCH (10:23)
[2019-10-19] MEDS: NICOTINE 21 MG/24 HOURS TOPICAL PATCH TD SCH (10:24)
--- NOTE | 2019-10-19 11:26 | PN ---
[facility] CIWA - CIWA Score Nausea/Vomitin-No Nausea/No Vomiting Muscle Tremors: 2 Anxiety: 3 Agitation: 0-Normal Activity Paroxysmal Sweats: 3 Orientation: 0-Oriented Tacttile Disturbances: 0-None Auditory Disturbances: 0-None Visual Disturbances: 0-None Headache: 1-Very Mild CIWA-Ar Total Score: 9 S Progress Note (SOAP) Subjective: c/o nausea, sweats, anxiety, mild shakes, and headache. Objective: 10/19/19 11:24 Vital Signs 10/19/19 10/19/19 06:30 08:43 Temperature 97.6 F 97.1 F L Pulse Rate 85 74 Respiratory 16 16 Rate Blood Pressure 121/86 108/69 O2 Sat by Pulse 97 Oximetry (%) Laboratory Last Values WBC 5.9 K/mm3 (4.0-10.0) 10/18/19 07:30 RBC 4.21 M/mm3 (3.60-5.2) 10/18/19 07:30 Hgb 11.7 GM/dL (10.7-15.3) 10/18/19 07:30 Hct 36.5 % (32.4-45.2) 10/18/19 07:30 MCV 86.7 fl (80-96) 10/18/19 07:30 MCH 27.9 pg (25.7-33.7) 10/18/19 07:30 MCHC 32.1 g/dl (32.0-36.0) 10/18/19 07:30 RDW 15.2 % (11.6-15.6) 10/18/19 07:30 Plt Count 275 K/MM3 (134-434) 10/18/19 07:30 MPV 8.1 fl (7.5-11.1) 10/18/19 07:30 Sodium 142 mmol/L (136-145) 10/18/19 07:30 Potassium 4.4 mmol/L (3.5-5.1) 10/18/19 07:30 Chloride 110 mmol/L (98-107) H 10/18/19 07:30 Carbon Dioxide 29 mmol/L (21-32) 10/18/19 07:30 Anion Gap 3 MMOL/L (8-16) L 10/18/19 07:30 BUN 14.8 mg/dL (7-18) 10/18/19 07:30 Creatinine 0.7 mg/dL (0.55-1.3) 10/18/19 07:30 Est GFR (CKD-EPI)AfAm 120.43 10/18/19 07:30 Est GFR (CKD-EPI)NonAf 103.90 10/18/19 07:30 Random Glucose 92 mg/dL (74-106) 10/18/19 07:30 Calcium 8.4 mg/dL (8.5-10.1) L 10/18/19 07:30 Total Bilirubin 0.2 mg/dL (0.2-1) 10/18/19 07:30 AST 14 U/L (15-37) L 10/18/19 07:30 ALT 17 U/L (13-61) 10/18/19 07:30 Alkaline Phosphatase 58 U/L (45-117) 10/18/19 07:30 Total Protein 6.0 g/dl (6.4-8.2) L 10/18/19 07:30 Albumin 3.2 g/dl (3.4-5.0) L 10/18/19 07:30 POC Urine HCG, Qual Negative 10/17/19 15:29 Syphilis Serology Non-reactive (NONREACTIVE) 10/18/19 07:30 HIV Ag/Ab Combo Qual Negative (NEGATIVE) 10/18/19 07:30 Labs noted. Assessment: 10/19/19 11:25 AOX3 and in no acute respiratory distress. Full ROM, ambulating in the unit. Withdrawal symptoms. Plan: continue detox.
[2019-10-19] MEDS: METHOCARBAMOL 500 MG TABLET PO PRN ×2 (12:41→18:40)
[2019-10-19] MEDS: ACETAMINOPHEN 325 MG TABLET (FP) PO PRN (17:40)
[2019-10-19] MEDS: MELATONIN 5 MG TABLETS PO SCH (22:13)
[2019-10-19] MEDS: THIAMINE HCL 100 MG TABLET (FP) PO SCH (22:13)
[2019-10-20] MEDS ORDERED: chlordiazePOXIDE HCL 10 MG CAPSULE PO PRN
[2019-10-20] MEDS: hydrOXYzine PAMOATE 25 MG CAPSULE (FP) PO SCH ×5 (05:07→22:11)
[2019-10-20] MEDS: chlordiazePOXIDE HCL 10 MG CAPSULE PO SCH ×4 (05:08→22:10)
[2019-10-20] MEDS: METHOCARBAMOL 500 MG TABLET PO PRN ×2 (05:08→16:29)
--- NOTE | 2019-10-20 09:17 | PN ---
S CIWA - CIWA Score Nausea/Vomitin-No Nausea/No Vomiting Muscle Tremors: 2 Anxiety: 1-Mildly Anxious Agitation: 1-Slight > Activity Paroxysmal Sweats: 1-Minimal Palms Moist Orientation: 0-Oriented Tacttile Disturbances: 1-Very Mild Itch/Numbness Auditory Disturbances: 0-None Visual Disturbances: 2-Mild Sensitivity Headache: 0-None Present CIWA-Ar Total Score: 8 BHS Progress Note (SOAP) Subjective: 48 years old female admitted on 10/17/19 for alcohol withdrawal sx management treating with librium detox regiment sitting on bed eating breakfast no trouble chewing swallowing tolerated well speech clearly reports second alcohol detox in [facility] for "my son's" birthday "I do this for him" states that on 6N that both are working toward sobriety Objective: 10/20/19 09:18 Vital Signs - 24 hr 10/19/19 10/19/19 10/19/19 13:04 16:39 20:37 Temperature 97.8 F 97.1 F L 97.7 F Pulse Rate 77 63 79 Respiratory 16 18 16 Rate Blood Pressure 91/61 104/68 110/75 O2 Sat by Pulse 100 98 Oximetry (%) 10/20/19 10/20/19 05:39 08:53 Temperature 96.8 F L 97.8 F Pulse Rate 72 78 Respiratory 16 18 Rate Blood Pressure 105/73 107/78 O2 Sat by Pulse 96 Oximetry (%) Laboratory Tests 10/17/19 10/17/19 10/18/19 15:29 17:00 07:30 WBC RBC Hgb Hct MCV MCH MCHC RDW Plt Count MPV Sodium Potassium Chloride Carbon Dioxide Anion Gap BUN Creatinine Est GFR (CKD-EPI)AfAm Est GFR (CKD-EPI)NonAf Random Glucose Calcium Total Bilirubin AST ALT Alkaline Phosphatase Total Protein Albumin POC Urine HCG, Qual Negative Syphilis Serology Non-reactive COVID-19 ([facility]) Not detected HIV Ag/Ab Combo Qual 10/18/19 10/18/19 10/18/19 07:30 07:30 07:30 WBC 5.9 RBC 4.21 Hgb 11.7 Hct 36.5 MCV 86.7 MCH 27.9 MCHC 32.1 RDW 15.2 Plt Count 275 MPV 8.1 Sodium 142 Potassium 4.4 Chloride 110 H Carbon Dioxide 29 Anion Gap 3 L BUN 14.8 Creatinine 0.7 Est GFR (CKD-EPI)AfAm 120.43 Est GFR (CKD-EPI)NonAf 103.90 Random Glucose 92 Calcium 8.4 L Total Bilirubin 0.2 AST 14 L ALT 17 Alkaline Phosphatase 58 Total Protein 6.0 L Albumin 3.2 L POC Urine HCG, Qual Syphilis Serology COVID-19 ([facility]) HIV Ag/Ab Combo Qual Negative lab noted Assessment: 10/20/19 09:19 alcohol withdrawal Plan: librium regiment
[2019-10-20] MEDS: PRENATAL VITAMINS W/ FOLIC ACID TABLET (FP) PO SCH (09:55)
[2019-10-20] MEDS: NICOTINE 21 MG/24 HOURS TOPICAL PATCH TD SCH (09:55)
[2019-10-20] MEDS ORDERED: ALBUTEROL SO4 HFA INHALER IH PRN (09:57)
[2019-10-20] MEDS: ACETAMINOPHEN 325 MG TABLET (FP) PO PRN (20:37)
[2019-10-20 21:12] LABS: PH,URINE 6.5 (5.0-8.0); URINE APPEARANCE CLEAR; URINE BILIRUBIN NEGATIVE (NEGATIVE); URINE COLOR YELLOW; URINE GLUCOSE (UA) NEGATIVE (NEGATIVE); URINE KETONE NEGATIVE (NEGATIVE); URINE LEUK ESTERASE NEGATIVE (NEGATIVE); URINE NITRITE NEGATIVE (NEGATIVE); URINE PROTEIN NEGATIVE (NEGATIVE); URINE UROBILINOGEN 0.2 mg/dL (0.2-1.0)
[2019-10-20] MEDS: THIAMINE HCL 100 MG TABLET (FP) PO SCH (22:11)
[2019-10-20] MEDS: MELATONIN 5 MG TABLETS PO SCH (22:11)
[2019-10-21] MEDS ORDERED: chlordiazePOXIDE HCL 10 MG CAPSULE PO SCH (05:00)
[2019-10-21] MEDS: hydrOXYzine PAMOATE 25 MG CAPSULE (FP) PO SCH ×2 (05:22→10:01)
[2019-10-21] MEDS: METHOCARBAMOL 500 MG TABLET PO PRN (05:22)
[2019-10-21 09:16] VITALS: BP 98/75; PULSE 77; TEMP 97.7
--- NOTE | 2019-10-21 09:40 | PN ---
S CIWA - CIWA Score Nausea/Vomitin-No Nausea/No Vomiting Muscle Tremors: 1-None Visible, but [place] Anxiety: 1-Mildly Anxious Agitation: 0-Normal Activity Paroxysmal Sweats: No Perspiration Orientation: 0-Oriented Tacttile Disturbances: 0-None Auditory Disturbances: 0-None Visual Disturbances: 2-Mild Sensitivity Headache: 1-Very Mild CIWA-Ar Total Score: 5 BHS Progress Note (SOAP) Subjective: 48 years old female admitted on 10/17/19 for alcohol withdrawal sx management treating with librium detox regiment feeling better today less tremor discussing aftercare with staff possible returning to new direction Objective: 10/21/19 09:44 Vital Signs - 24 hr 10/20/19 10/20/19 10/21/19 16:31 20:32 06:46 Temperature 97.5 F L 97.5 F L 97.3 F L Pulse Rate 91 H 79 78 Respiratory 16 16 18 Rate Blood Pressure 115/69 110/75 102/68 O2 Sat by Pulse 97 99 Oximetry (%) 10/21/19 08:37 Temperature 97.7 F Pulse Rate 77 Respiratory 18 Rate Blood Pressure 98/75 O2 Sat by Pulse Oximetry (%) Laboratory Tests 10/17/19 10/17/19 10/18/19 15:29 17:00 07:30 WBC RBC Hgb Hct MCV MCH MCHC RDW Plt Count MPV Sodium Potassium Chloride Carbon Dioxide Anion Gap BUN Creatinine Est GFR (CKD-EPI)AfAm Est GFR (CKD-EPI)NonAf Random Glucose Calcium Total Bilirubin AST ALT Alkaline Phosphatase Total Protein Albumin Urine Color Urine Appearance Urine pH Ur Specific [place] Urine Protein Urine Glucose (UA) Urine Ketones Urine Blood Urine Nitrite Urine Bilirubin Urine Urobilinogen Ur Leukocyte Esterase POC Urine HCG, Qual Negative Syphilis Serology Non-reactive COVID-19 ([facility]) Not detected HIV Ag/Ab Combo Qual 10/18/19 10/18/19 10/18/19 07:30 07:30 07:30 WBC 5.9 RBC 4.21 Hgb 11.7 Hct 36.5 MCV 86.7 MCH 27.9 MCHC 32.1 RDW 15.2 Plt Count 275 MPV 8.1 Sodium 142 Potassium 4.4 Chloride 110 H Carbon Dioxide 29 Anion Gap 3 L BUN 14.8 Creatinine 0.7 Est GFR (CKD-EPI)AfAm 120.43 Est GFR (CKD-EPI)NonAf 103.90 Random Glucose 92 Calcium 8.4 L Total Bilirubin 0.2 AST 14 L ALT 17 Alkaline Phosphatase 58 Total Protein 6.0 L Albumin 3.2 L Urine Color Urine Appearance Urine pH Ur Specific [place] Urine Protein Urine Glucose (UA) Urine Ketones Urine Blood Urine Nitrite Urine Bilirubin Urine Urobilinogen Ur Leukocyte Esterase POC Urine HCG, Qual Syphilis Serology COVID-19 ([facility]) HIV Ag/Ab Combo Qual Negative 10/20/19 07:02 WBC RBC Hgb Hct MCV MCH MCHC RDW Plt Count MPV Sodium Potassium Chloride Carbon Dioxide Anion Gap BUN Creatinine Est GFR (CKD-EPI)AfAm Est GFR (CKD-EPI)NonAf Random Glucose Calcium Total Bilirubin AST ALT Alkaline Phosphatase Total Protein Albumin Urine Color Yellow Urine Appearance Clear Urine pH 6.5 Ur Specific [place] 1.020 Urine Protein Negative Urine Glucose (UA) Negative Urine Ketones Negative Urine Blood Negative Urine Nitrite Negative Urine Bilirubin Negative Urine Urobilinogen 0.2 Ur Leukocyte Esterase Negative POC Urine HCG, Qual Syphilis Serology COVID-19 ([facility]) HIV Ag/Ab Combo Qual lab noted Assessment: 10/21/19 09:45 alcohol withdrawal Plan: librium regiment
[2019-10-21] MEDS: NICOTINE 21 MG/24 HOURS TOPICAL PATCH TD SCH (10:01)
[2019-10-21] MEDS: PRENATAL VITAMINS W/ FOLIC ACID TABLET (FP) PO SCH (10:01)
--- NOTE | 2019-10-21 10:16 | DS ---
[facility] Detox Discharge Summary Admission Date: 10/17/19 Discharge Date: 10/21/19 - History Present History: Alcohol Dependence Additional Comments: 48 years old female admitted on 10/17/19 for alcohol withdrawal sx management treated with librium detox regiment ms singh prefers to leave the detox today instead of estimated date of 10/22/19 seen by psychiatrist no medical intervention General Appearance: Yes: Mild Distress, Anxious HEENTM: Yes: EOMI, Normocephalic, OVIDIO Respiratory: Yes: Lungs Clear, Normal Breath Sounds, No Respiratory Distress, No Accessory Muscle Use Neck: Yes: Supple Cardiology: Yes: Regular Rhythm, Regular Rate, S1, S2 Abdominal: Yes: Normal Bowel Sounds, Non Tender, Flat, Soft Musculoskeletal: Yes: Within Normal Limits, full range of Motion Extremities: Yes: Within Normal Limits, Normal Range of Motion Neurological: Yes: band sawyer II-XII NML intact, Alert, Motor Strength 5/5 Integumentary: Yes: Dry, Warm, Other (hypopigmented macules noted along bilateral forearms) Pertinent Past History: time for discharge 36 minutes benefits of librium regiment completion discussed with ms samantha singh prefers to return to [facility] to guard her belonging - Physical Exam Results Vital Signs: Vital Signs Temperature 97.7 F 10/21/19 08:37 Pulse Rate 77 10/21/19 08:37 Respiratory Rate 18 10/21/19 08:37 Blood Pressure 98/75 10/21/19 08:37 O2 Sat by Pulse Oximetry (%) 99 10/21/19 06:46 Pertinent Admission Physical Exam Findings: alcohol withdrawal Laboratory Tests 10/17/19 10/17/19 10/18/19 15:29 17:00 07:30 WBC RBC Hgb Hct MCV MCH MCHC RDW Plt Count MPV Sodium Potassium Chloride Carbon Dioxide Anion Gap BUN Creatinine Est GFR (CKD-EPI)AfAm Est GFR (CKD-EPI)NonAf Random Glucose Calcium Total Bilirubin AST ALT Alkaline Phosphatase Total Protein Albumin Urine Color Urine Appearance Urine pH Ur Specific [place] Urine Protein Urine Glucose (UA) Urine Ketones Urine Blood Urine Nitrite Urine Bilirubin Urine Urobilinogen Ur Leukocyte Esterase POC Urine HCG, Qual Negative Syphilis Serology Non-reactive COVID-19 ([facility]) Not detected HIV Ag/Ab Combo Qual 10/18/19 10/18/19 10/18/19 07:30 07:30 07:30 WBC 5.9 RBC 4.21 Hgb 11.7 Hct 36.5 MCV 86.7 MCH 27.9 MCHC 32.1 RDW 15.2 Plt Count 275 MPV 8.1 Sodium 142 Potassium 4.4 Chloride 110 H Carbon Dioxide 29 Anion Gap 3 L BUN 14.8 Creatinine 0.7 Est GFR (CKD-EPI)AfAm 120.43 Est GFR (CKD-EPI)NonAf 103.90 Random Glucose 92 Calcium 8.4 L Total Bilirubin 0.2 AST 14 L ALT 17 Alkaline Phosphatase 58 Total Protein 6.0 L Albumin 3.2 L Urine Color Urine Appearance Urine pH Ur Specific [place] Urine Protein Urine Glucose (UA) Urine Ketones Urine Blood Urine Nitrite Urine Bilirubin Urine Urobilinogen Ur Leukocyte Esterase POC Urine HCG, Qual Syphilis Serology COVID-19 ([facility]) HIV Ag/Ab Combo Qual Negative 10/20/19 07:02 WBC RBC Hgb Hct MCV MCH MCHC RDW Plt Count MPV Sodium Potassium Chloride Carbon Dioxide Anion Gap BUN Creatinine Est GFR (CKD-EPI)AfAm Est GFR (CKD-EPI)NonAf Random Glucose Calcium Total Bilirubin AST ALT Alkaline Phosphatase Total Protein Albumin Urine Color Yellow Urine Appearance Clear Urine pH 6.5 Ur Specific [place] 1.020 Urine Protein Negative Urine Glucose (UA) Negative Urine Ketones Negative Urine Blood Negative Urine Nitrite Negative Urine Bilirubin Negative Urine Urobilinogen 0.2 Ur Leukocyte Esterase Negative POC Urine HCG, Qual Syphilis Serology COVID-19 ([facility]) HIV Ag/Ab Combo Qual lab noted - Treatment Hospital Course: Detox Protocol Followed, Detoxed Safely, Responded well, Discharged Condition Good, Rehab Referral Accepted Patient has Accepted a Rehab Referral to: [facility] - Medication Discharge Medications: Ambulatory Orders NK [No Known Home Medication] 10/17/19 - Diagnosis (1) Alcohol dependence with withdrawal, uncomplicated Status: Acute (2) Asthma Status: Chronic Qualifiers: Asthma severity: mild Asthma persistence: intermittent Asthma complication type: with status asthmaticus Qualified Code(s): J45.22 - Mild intermittent asthma with status asthmaticus (3) Anemia Status: Chronic Qualifiers: Anemia type: iron deficiency Iron deficiency anemia type: unspecified iron deficiency Qualified Code(s): D50.9 - Iron deficiency anemia, unspecified (4) Nicotine dependence Status: Acute Qualifiers: Nicotine product type: cigarettes Substance use status: in withdrawal Qualified Code(s): F17.213 - Nicotine dependence, cigarettes, with withdrawal (5) Substance induced mood disorder Status: Suspected - AMA Did Patient Leave Against Medical Advice: No CIWA Score - CIWA Score Nausea/Vomitin-No Nausea/No Vomiting Muscle Tremors: 1-None Visible, but [place] Anxiety: 1-Mildly Anxious Agitation: 0-Normal Activity Paroxysmal Sweats: No Perspiration Orientation: 0-Oriented Tacttile Disturbances: 0-None Auditory Disturbances: 0-None Visual Disturbances: 1-Very Mild Sensitivity Headache: 0-None Present CIWA-Ar Total Score: 3
[2019-10-22] MEDS ORDERED: chlordiazePOXIDE HCL 10 MG CAPSULE PO ONE (05:00)
== END 2019-10-21 10:54 | disposition home or self-care (01) | DRG 774 ==
LOC: YASAS 12:46 → Y6N 16:39 → Y3N 17:34
PROVIDERS: ADMIT Allergy & Immunology; ATTEND Allergy & Immunology
PROC: HZ2ZZZZ Detoxification Services for Substance Abuse Treatment (ICD-10-PCS; principal; 2019-10-17)
DX: F10.230 Alcohol dependence with withdrawal, uncomplicated (principal); F14.20 Cocaine dependence, uncomplicated; F17.213 Nicotine dependence, cigarettes, with withdrawal; F19.24 Other psychoactive substance dependence with psychoactive substance-induced mood disorder; F31.89 Other bipolar disorder; J45.20 Mild intermittent asthma, uncomplicated; D50.9 Iron deficiency anemia, unspecified; G47.00 Insomnia, unspecified; Z85.42 Personal history of malignant neoplasm of other parts of uterus; Z88.0 Allergy status to penicillin; Z59.0 Homelessness
CPT/HCPCS: 36415; 80053; 81003; 81025; 85027; 86780; 87389; Q0162; U0003

== ENCOUNTER 2019-12-04 17:49 | Inpatient (IN) | payer OTHER ==
--- NOTE | 2019-12-04 19:27 | BHS.RME ---
Substance Use & Tx History - Substance Use History Alcohol Substance amount: 1 pint vodka +7-8 40 oz beers Frequency of use: Daily Substance route: Oral Date of Last Use: 12/04/19 Cocaine-Crack Substance amount: $80 worth Frequency of use: Daily Substance route: Smoking Date of Last Use: 12/04/19 Nicotine Substance amount: 1 pack Frequency of use: Daily Substance route: Smoking Date of Last Use: 12/04/19 - Last Treatment Date of last treatment: 10/17/2019 Treatment type: Medical Where was last treatment: Detox Physical/Psych/Mental Status - Behavior General Behavior: Increased activity (restlessness, agitation) Eye Contact: Normal - Cooperativeness Cooperativeness: Cooperative - Thinking Thought Processes: Tight, Logical, Goal Directed Thought content: Future oriented - Physical Health Problems Is patient presently having any pain?: Yes (headache) Does patient presently have any injuries (include location): No Does patient currently have a fever: No Is patient : No CIWA Nausea/Vomitin-Int. Nausea w/Dry Heave Muscle Tremors: 1-None Visible, but [place] Anxiety: 1-Mildly Anxious Agitation: 4-Moderately Restless Paroxysmal Sweats: No Perspiration Orientation: 0-Oriented Tacttile Disturbances: 0-None Auditory Disturbances: 0-None Visual Disturbances: 0-None Headache: 6-Very Severe CIWA-Ar Total Score: 16 Treatment Recommendation - Level of Care Level of Care: Acute Medical
--- NOTE | 2019-12-04 19:42 | HP ---
CIWA Score Nausea/Vomitin-Int. Nausea w/Dry Heave Muscle Tremors: 1-None Visible, but [place] Anxiety: 1-Mildly Anxious Agitation: 4-Moderately Restless Paroxysmal Sweats: No Perspiration Orientation: 0-Oriented Tacttile Disturbances: 0-None Auditory Disturbances: 0-None Visual Disturbances: 0-None Headache: 6-Very Severe CIWA-Ar Total Score: 16 - Admission Criteria OASAS Guidelines: Admission for Medically Managed Detox: Requires at least one of the followin. CIWA greater than 12 2. Seizures within the past 24 hours 3. Delirium tremens within the past 24 hours 4. Hallucinations within the past 24 hours 5. Acute intervention needed for co occurring medical disorder 6. Acute intervention needed for co occurring psychiatric disorder 7. Severe withdrawal that cannot be handled at a lower level of care (continued vomiting, continued diarrhea, abnormal vital signs) requiring intravenous medication and/or fluids 8. Admitting History and Physical - Admission Chief Complaint: 48 yo F presenting for alcohol detox. History of Present Illness: Pt is a 48 yo F presenting for alcohol detox. Was last here from 10/16 - 10/21/2019; completed detox. Pt reports relapsing 2 days after leaving with no specific triggers. PMH - asthma (albuterol inhaler), anemia (in past; no meds; last Hb > 11), chronic back pain PSH - cholecystectomy (approx 3 years ago, per pt) Psych - pt reports anxiety/depressed - no medications Social/Domiciled - homeless, lives in halfway x 4 kids in halfway with her Legal - none - Substance Use History Alcohol Substance amount: 1 pint vodka +7-8 40 oz beers Frequency of use: Daily Substance route: Oral Date of Last Use: 12/04/19 Cocaine-Crack Substance amount: $80 worth Frequency of use: Daily Substance route: Smoking Date of Last Use: 12/04/19 Nicotine Substance amount: 1 pack Frequency of use: Daily Substance route: Smoking Date of Last Use: 12/04/19 - Last Treatment Date of last treatment: 10/17/2019 Treatment type: Medical Where was last treatment: Detox History Source: Patient Limitations to Obtaining History: No Limitations - Past Medical History Pulmonary: Yes: Asthma - Smoking History Smoking history: Current every day smoker Have you smoked in the past 12 months: Yes Aproximately how many cigarettes per day: 20 - Alcohol/Substance Use Hx Alcohol Use: Yes Admission ROS BHS - HPI Allergies/Adverse Reactions: Allergies Allergy/AdvReac Type Severity Reaction Status Date / Time Penicillins Allergy Verified 10/17/19 16:41 - Ebola screening Have you traveled outside of the country in the last 21 days: No Have you been sick,other than usual withdrawal symptoms: No Do you have a fever: No - Review of Systems Constitutional: Changes in sleep (trouble sleeping) EENT: reports: Blurred Vision (hx of being farsighted; needs glasses) Respiratory: reports: No Symptoms reported Cardiac: reports: No Symptoms Reported GI: reports: Diarrhea, Nausea (with dry heaving) Musculoskeletal: reports: Back Pain (chronic low back pain) Integumentary: reports: No Symptoms Reported Neuro: reports: Headache (severe headache), Tremors (mild tremors) Endocrine: reports: No Symptoms Reported Hematology: reports: No Symptoms Reported Psychiatric: reports: Orientated x3, Anxious, Depressed (no SI/HI) Patient History - Patient Medical History Hx Asthma: No Hx Chronic Obstructive Pulmonary Disease (COPD): No Hx Cardiac Disorders: No Hx Hypertension: No Hx Seizures: No Hx Diabetes: No Hx Gastrointestinal Disorders: No Hx Genitourinary Disorders: No Hx Sexually Transmitted Disorders: No Hx Renal Disease (ESRD): No Hx Depression: Yes Hx Suicide Attempt: Yes (2019) Hx Schizophrenia: No - Patient Surgical History Past Surgical History: No Hx Neurologic Surgery: No Hx Cataract Extraction: No Hx Cardiac Surgery: No Hx Lung Surgery: No Hx Breast Surgery: No Hx Breast Biopsy: No Hx Abdominal Surgery: No Hx Appendectomy: No Hx Cholecystectomy: Yes Hx Genitourinary Surgery: No Hx Section: No Hx Orthopedic Surgery: No Hx Hysterectomy: No Anesthesia Reaction: No - PPD History Date: 10/19/19 - Smoking Cessation Smoking history: Current every day smoker Have you smoked in the past 12 months: Yes Aproximately how many cigarettes per day: 20 Hx Chewing Tobacco Use: No Initiated information on smoking cessation: Yes 'Breaking Loose' booklet given: 12/04/19 Admission Physical Exam S - Vital Signs Vital Signs: BP 117/68 HR 93 RR 18 T 98.2 O2 sat 97% - Physical General Appearance: Yes: No Apparent Distress, Nourished, Appropriately Dressed HEENTM: Yes: EOMI, Hearing grossly Normal, Normocephalic, Normal Voice Respiratory: Yes: Lungs Clear, Normal Breath Sounds, No Respiratory Distress, No Accessory Muscle Use Neck: Yes: Supple, Trachea in good position Breast: Yes: Breast Exam Deferred Cardiology: Yes: Regular Rhythm, Regular Rate Abdominal: Yes: Normal Bowel Sounds, Non Tender, Flat, Soft Genitourinary: Yes: Other (deferred) Back: Yes: Normal Inspection Musculoskeletal: Yes: Gait Steady Extremities: Yes: Normal Inspection, Normal Range of Motion, Non-Tender Neurological: Yes: Fully Oriented, Alert, Motor Strength 5/5 Integumentary: Yes: Normal Color, Dry, Warm Cleared for Admission S - Detox or Rehab S Level of Care: Medically Managed Detox Regimen/Protocol: Librium Breathalyzer - Breathalyzer Breathalyzer: 0.08 Urine Drug Screen - Test Device Lot number: [id number] Expiration date: 10/14/21 - Control Is test valid?: Yes - Results Drug screen NEGATIVE: No Urine drug screen results: [facility] Inpatient Rehab Admission - Rehab Decision to Admit Inpatient rehab admission?: No
[2019-12-04] MEDS ORDERED: BISMUTH SUBSALICYLATE 524 MG/30 ML UD PO PRN (19:56)
[2019-12-04] MEDS ORDERED: ACETAMINOPHEN 325 MG TABLET (FP) PO PRN (19:56)
[2019-12-04] MEDS ORDERED: MAGNESIUM HYDROX 2400MG/30ML ORAL SUSPENSION 30 ML CUP PO PRN (19:56)
[2019-12-04] MEDS ORDERED: NICOTINE POLACRILEX 2 MG GUM BUC PRN (19:56)
[2019-12-04] MEDS ORDERED: ONDANSETRON *ODT* 4 MG TABLET SL PRN (19:56)
[2019-12-04] MEDS ORDERED: MAGNESIUM CITRATE 300 ML BOTTLE PO PRN (19:56)
[2019-12-04] MEDS ORDERED: MAG HYDROX/AL HYDROX/SIMETH 30 ML UNIT-DOSE CUP PO PRN (19:56)
[2019-12-04] MEDS ORDERED: chlordiazePOXIDE HCL 25 MG CAPSULE PO PRN (19:56)
[2019-12-04 20:20] VITALS: BMI 17.7
--- OUTSIDE RECORDS SUMMARY | 2019-12-04 20:48 | XMS ---
:1970 Author Organization [facility] Support Name Relationship Address Phone UE Unavailable Unavailable Unavailable SKIP BURCE DAUGHTER [phone] [place] [address] SKIP BRUCE Child [address] [place] [address] Re-disclosure Warning The records that you are about to access may contain information from federally- assisted alcohol or drug abuse programs. If such information is present, then the following federally mandated warning applies: This information has been disclosed to you from records protected by federal confidentiality rules (42 CFR part 2). The federal rules prohibit you from making any further disclosure of this information unless further disclosure is expressly permitted by the written consent of the person to whom it pertains or as otherwise permitted by 42 CFR part 2. A general authorization for the release of medical or other information is NOT sufficient for this purpose. The Federal rules restrict any use of the information to criminally investigate or prosecute any alcohol or drug abuse patient.The records that you are about to access may contain highly sensitive health information, the redisclosure of which is protected by Article 27-F of the [facility] Public Health law. If you continue you may haveaccess to information: Regarding HIV / AIDS; Provided by facilities licensed or operated by the [facility] Office of Mental Health; or Provided by the [facility] Office for People With Developmental Disabilities. If such information is present, then the following [facility] mandated warning applies: This information has been disclosed to you from confidential records which are protected by state law. State law prohibits you from making any further disclosure of this information without the specific written consent of the person to whom it pertains, or as otherwise permitted by law. Any unauthorized further disclosure in violation of state law may result in a fine or mcc sentence or both. A general authorization for the release of medical or other information is NOT sufficient authorization for further disclosure. Insurance Providers Payer name Policy type Policy ID Covered Covered alliance party's Policy P jill / Coverage alliance party ID relationship to [employer] ormation type [facility] [employer] [id number] FIRST Results ID Date Data Source [id number] 10/17/2019 05:00:00 PM EDT [facility] Name Value Range Interpretation Description Data Sup porting Code Source(s) Document(s ) SARS [facility] coronavirus 2 RNA This lab was ordered by [facility] [address] [facility] and reported by [facility]. ID Date Data Source [id number] 09/06/2019 02:50:00 PM EDT [facility] Name Value Range Interpretation Description Data Sup porting Code Source(s) Document(s ) SARS [facility] CORONAVIRUS 2 RNA This lab was ordered by [facility] [address] [facility] and reported by [facility]. Procedure
[2019-12-04] MEDS ORDERED: MELATONIN 5 MG TABLETS PO SCH (22:00)
[2019-12-04] MEDS: chlordiazePOXIDE HCL 25 MG CAPSULE PO SCH (22:33)
[2019-12-04] MEDS: NICOTINE 21 MG/24 HOURS TOPICAL PATCH TD SCH (22:33)
[2019-12-04] MEDS: hydrOXYzine PAMOATE 25 MG CAPSULE (FP) PO SCH (22:34)
[2019-12-04] MEDS: THIAMINE HCL 100 MG TABLET (FP) PO SCH (22:34)
[2019-12-04] MEDS: METHOCARBAMOL 500 MG TABLET PO PRN (22:38)
[2019-12-05] MEDS: hydrOXYzine PAMOATE 25 MG CAPSULE (FP) PO SCH (06:23)
[2019-12-05] MEDS: chlordiazePOXIDE HCL 25 MG CAPSULE PO SCH ×4 (06:23→22:05)
[2019-12-05 10:54] LABS: HEMOGLOBIN 11.8 GM/dL (10.7-15.3); MCH 28.2 pg (25.7-33.7); MCHC 32.7 g/dl (32.0-36.0); MEAN CELL VOLUME 86.2 fl (80-96); MEAN PLT VOLUME 8.1 fl (7.5-11.1); PLATELET COUNT 250 K/MM3 (134-434); RBC 4.17 M/mm3 (3.60-5.2); RDW 15.5 % (11.6-15.6); WHITE BLOOD COUNT 6.2 K/mm3 (4.0-10.0)
[2019-12-05 11:10] LABS: POTASSIUM 4.1 mmol/L (3.5-5.1)
[2019-12-05 11:26] LABS: ALBUMIN 3.6 g/dl (3.4-5.0); BILIRUBIN,TOTAL 0.7 mg/dL (0.2-1); CALCIUM 8.9 mg/dL (8.5-10.1); CREATININE 0.7 mg/dL (0.55-1.3); TOT PROT 6.6 g/dl (6.4-8.2)
--- NOTE | 2019-12-05 11:49 | PN ---
S CIWA - CIWA Score Nausea/Vomitin Muscle Tremors: 2 Anxiety: 2 Agitation: 2 Paroxysmal Sweats: 1-Minimal Palms Moist Orientation: 0-Oriented Tacttile Disturbances: 1-Very Mild Itch/Numbness Auditory Disturbances: 0-None Visual Disturbances: 0-None Headache: 2-Mild CIWA-Ar Total Score: 12 BHS Progress Note (SOAP) Subjective: alert,irritable,anxious,interrupted sleep,tremor,pain in the body,nausea,aching pain,poor oral intake Objective: 12/05/19 18:00 Vital Signs Temperature 97.7 F 12/05/19 17:00 Pulse Rate 79 12/05/19 17:00 Respiratory Rate 16 12/05/19 17:00 Blood Pressure 99/70 12/05/19 17:00 O2 Sat by Pulse Oximetry (%) 97 12/05/19 12:50 12/05/19 18:00 Laboratory Last Values WBC 6.2 K/mm3 (4.0-10.0) 12/05/19 07:50 RBC 4.17 M/mm3 (3.60-5.2) 12/05/19 07:50 Hgb 11.8 GM/dL (10.7-15.3) 12/05/19 07:50 Hct 36.0 % (32.4-45.2) 12/05/19 07:50 MCV 86.2 fl (80-96) 12/05/19 07:50 MCH 28.2 pg (25.7-33.7) 12/05/19 07:50 MCHC 32.7 g/dl (32.0-36.0) 12/05/19 07:50 RDW 15.5 % (11.6-15.6) 12/05/19 07:50 Plt Count 250 K/MM3 (134-434) 12/05/19 07:50 MPV 8.1 fl (7.5-11.1) 12/05/19 07:50 Sodium 142 mmol/L (136-145) 12/05/19 07:50 Potassium 4.1 mmol/L (3.5-5.1) 12/05/19 07:50 Chloride 108 mmol/L (98-107) H 12/05/19 07:50 Carbon Dioxide 27 mmol/L (21-32) 12/05/19 07:50 Anion Gap 6 MMOL/L (8-16) L 12/05/19 07:50 BUN 22.0 mg/dL (7-18) H 12/05/19 07:50 Creatinine 0.7 mg/dL (0.55-1.3) 12/05/19 07:50 Est GFR (CKD-EPI)AfAm 120.43 12/05/19 07:50 Est GFR (CKD-EPI)NonAf 103.90 12/05/19 07:50 POC Glucometer 90 UNITS (80-120) 12/05/19 12:44 Random Glucose 54 mg/dL (74-106) L 12/05/19 07:50 Calcium 8.9 mg/dL (8.5-10.1) 12/05/19 07:50 Total Bilirubin 0.7 mg/dL (0.2-1) 12/05/19 07:50 AST 27 U/L (15-37) 12/05/19 07:50 ALT 30 U/L (13-61) 12/05/19 07:50 Alkaline Phosphatase 72 U/L (45-117) 12/05/19 07:50 Total Protein 6.6 g/dl (6.4-8.2) 12/05/19 07:50 Albumin 3.6 g/dl (3.4-5.0) 12/05/19 07:50 Syphilis Serology Non-reactive (NONREACTIVE) 12/05/19 07:50 Assessment: 12/05/19 18:01 withdrawal symptom Plan: continue detox librium regimen,encourage oral fluid,ensure plus 120 mls po with each meal
[2019-12-05] MEDS: PRENATAL VITAMINS W/ FOLIC ACID TABLET (FP) PO SCH (11:51)
[2019-12-05] MEDS: METHOCARBAMOL 500 MG TABLET PO PRN ×2 (11:52→18:47)
[2019-12-05] MEDS: ACETAMINOPHEN 325 MG TABLET (FP) PO PRN ×2 (11:54→23:10)
[2019-12-05] MEDS: NICOTINE 21 MG/24 HOURS TOPICAL PATCH TD SCH (12:04)
[2019-12-05] MEDS: ALBUTEROL SO4 HFA INHALER IH PRN (13:10)
--- NOTE | 2019-12-05 14:04 | CONSULT ---
[facility] Psychiatric Consult - Data Date of interview: 12/05/19 Admission source: [facility] Identifying data: Patient is a 48 year old single ecadorian female, mother of six, unemployed, homeless, and is not currently supported with financial assistance. This is one of multiple admissions for patient. Patient admitted to for alcohol and cocaine dependence. Substance Abuse History: Substance Use History. Alcohol. Substance amount: 1 pint vodka +7-8 40 oz beers. Frequency of use: Daily. Substance route: Oral. Date of Last Use: 12/04/19. Cocaine-Crack. Substance amount: $80 worth. Frequency of use: Daily. Substance route: Smoking. Date of Last Use: 12/04/19. Nicotine. Substance amount: 1 pack. Frequency of use: Daily. Substance route: Smoking. Date of Last Use: 12/04/19 Medical History: asthma, anemia , chronic back pain, cholecystectomy Psychiatric History: Patient denies history of psychiatric hospitalization and outpatient psychiatric care. She reports history of one suicide attempt two months ago by attempting to strangle herself but states that she stopped herself after she begun to think about her children. At present patient reports sad and is experiencing difficulty sleeping. Patient reports motivation to attend outpatient rehab after completion of detox program. Physical/Sexual Abuse/Trauma History: denies. Mental Status Exam - Mental Status Exam Alert and Oriented to: Time, Place, Person Cognitive Function: Good Patient Appearance: Well Groomed Mood: Sad, Hopeful Affect: Appropriate Patient Behavior: Appropriate, Cooperative Speech Pattern: Appropriate Voice Loudness: Normal Thought Process: Intact, Goal Oriented Thought Disorder: Not Present Hallucinations: Denies Suicidal Ideation: Denies Homicidal Ideation: Denies Insight/Judgement: Poor Sleep: Poorly Appetite: Fair Muscle strength/Tone: Normal Gait/Station: Normal Psychiatric Findings - Problem List ([place] 1, 2,3) (1) Alcohol dependence with withdrawal, uncomplicated Current Visit: Yes Status: Acute (2) Substance-induced sleep disorder Current Visit: Yes Status: Acute (3) Cocaine dependence Current Visit: Yes Status: Chronic Qualifiers: Substance use status: uncomplicated Qualified Code(s): F14.20 - Cocaine dependence, uncomplicated (4) Substance induced mood disorder Current Visit: Yes Status: Acute - Initial Treatment Plan Initial Treatment Plan: Psychoeducation provided. Detoxification in progress. Will order Melatonin 10mg HS. Benefits and side effects discussed. Verbal consent given.
[2019-12-05] MEDS: IBUPROFEN 400 MG TABLET (FP) PO PRN (15:59)
[2019-12-05] MEDS: MELATONIN 5 MG TABLETS PO SCH (22:05)
[2019-12-05] MEDS: THIAMINE HCL 100 MG TABLET (FP) PO SCH (22:06)
[2019-12-06] MEDS: chlordiazePOXIDE HCL 25 MG CAPSULE PO SCH ×4 (06:09→22:12)
--- NOTE | 2019-12-06 09:13 | PN ---
S CIWA - CIWA Score Nausea/Vomitin Muscle Tremors: 2 Anxiety: 2 Agitation: 2 Paroxysmal Sweats: No Perspiration Orientation: 0-Oriented Tacttile Disturbances: 1-Very Mild Itch/Numbness Auditory Disturbances: 0-None Visual Disturbances: 0-None Headache: 2-Mild CIWA-Ar Total Score: 12 S Progress Note (SOAP) Subjective: alert,anxious,agitated,aching pain,interrupted sleep,nausea,vomiting,aching pain Objective: 12/06/19 17:38 Vital Signs Temperature 97.3 F L 12/06/19 12:55 Pulse Rate 72 12/06/19 12:55 Respiratory Rate 18 12/06/19 12:55 Blood Pressure 101/61 12/06/19 12:55 O2 Sat by Pulse Oximetry (%) 96 12/06/19 12:55 12/06/19 17:38 Laboratory Last Values WBC 6.2 K/mm3 (4.0-10.0) 12/05/19 07:50 RBC 4.17 M/mm3 (3.60-5.2) 12/05/19 07:50 Hgb 11.8 GM/dL (10.7-15.3) 12/05/19 07:50 Hct 36.0 % (32.4-45.2) 12/05/19 07:50 MCV 86.2 fl (80-96) 12/05/19 07:50 MCH 28.2 pg (25.7-33.7) 12/05/19 07:50 MCHC 32.7 g/dl (32.0-36.0) 12/05/19 07:50 RDW 15.5 % (11.6-15.6) 12/05/19 07:50 Plt Count 250 K/MM3 (134-434) 12/05/19 07:50 MPV 8.1 fl (7.5-11.1) 12/05/19 07:50 Sodium 142 mmol/L (136-145) 12/05/19 07:50 Potassium 4.1 mmol/L (3.5-5.1) 12/05/19 07:50 Chloride 108 mmol/L (98-107) H 12/05/19 07:50 Carbon Dioxide 27 mmol/L (21-32) 12/05/19 07:50 Anion Gap 6 MMOL/L (8-16) L 12/05/19 07:50 BUN 22.0 mg/dL (7-18) H 12/05/19 07:50 Creatinine 0.7 mg/dL (0.55-1.3) 12/05/19 07:50 Est GFR (CKD-EPI)AfAm 120.43 12/05/19 07:50 Est GFR (CKD-EPI)NonAf 103.90 12/05/19 07:50 POC Glucometer 90 UNITS (80-120) 12/05/19 12:44 Random Glucose 54 mg/dL (74-106) L 12/05/19 07:50 Calcium 8.9 mg/dL (8.5-10.1) 12/05/19 07:50 Total Bilirubin 0.7 mg/dL (0.2-1) 12/05/19 07:50 AST 27 U/L (15-37) 12/05/19 07:50 ALT 30 U/L (13-61) 12/05/19 07:50 Alkaline Phosphatase 72 U/L (45-117) 12/05/19 07:50 Total Protein 6.6 g/dl (6.4-8.2) 12/05/19 07:50 Albumin 3.6 g/dl (3.4-5.0) 12/05/19 07:50 Syphilis Serology Non-reactive (NONREACTIVE) 12/05/19 07:50 COVID-19 ([facility]) Not detected (Not Detected) 12/04/19 23:30 Assessment: 12/06/19 17:39 withdrawal sympto Plan: continue detox librium regimen,tigan 200 mgs im q 6 hrs prn for nausea and vomiting
[2019-12-06] MEDS: NICOTINE 21 MG/24 HOURS TOPICAL PATCH TD SCH (10:19)
[2019-12-06] MEDS: PRENATAL VITAMINS W/ FOLIC ACID TABLET (FP) PO SCH (10:20)
[2019-12-06] MEDS: METHOCARBAMOL 500 MG TABLET PO PRN ×2 (10:20→17:53)
[2019-12-06] MEDS: TRIMETHOBENZAMIDE HCL 200MG/2ML INJ IM PRN ×2 (10:40→21:31)
[2019-12-06] MEDS: ACETAMINOPHEN 325 MG TABLET (FP) PO PRN (20:49)
[2019-12-06] MEDS: MENTHOL/PHENOL 1 EACH UD MM PRN (20:51)
[2019-12-06] MEDS: MELATONIN 5 MG TABLETS PO SCH (22:12)
[2019-12-06] MEDS: THIAMINE HCL 100 MG TABLET (FP) PO SCH (22:12)
[2019-12-07] MEDS ORDERED: chlordiazePOXIDE HCL 10 MG CAPSULE PO PRN
[2019-12-07] MEDS: chlordiazePOXIDE HCL 10 MG CAPSULE PO SCH ×4 (06:29→22:40)
[2019-12-07] MEDS: METHOCARBAMOL 500 MG TABLET PO PRN ×3 (06:31→18:10)
[2019-12-07] MEDS: MENTHOL/PHENOL 1 EACH UD MM PRN ×4 (06:32→22:41)
[2019-12-07] MEDS: PRENATAL VITAMINS W/ FOLIC ACID TABLET (FP) PO SCH (10:28)
[2019-12-07] MEDS: NICOTINE 21 MG/24 HOURS TOPICAL PATCH TD SCH (10:28)
[2019-12-07] MEDS: ALBUTEROL SO4 HFA INHALER IH PRN (10:29)
[2019-12-07] MEDS: IBUPROFEN 400 MG TABLET (FP) PO PRN ×2 (10:30→18:11)
--- NOTE | 2019-12-07 12:41 | PN ---
S CIWA - CIWA Score Nausea/Vomitin-No Nausea/No Vomiting Muscle Tremors: None Anxiety: 2 Agitation: 1-Slight > Activity Paroxysmal Sweats: 2 Orientation: 0-Oriented Tacttile Disturbances: 0-None Auditory Disturbances: 0-None Visual Disturbances: 0-None Headache: 2-Mild CIWA-Ar Total Score: 7 BHS Progress Note (SOAP) Subjective: c/o headache, sweats, and anxiety. Objective: 12/07/19 12:40 Vital Signs 12/07/19 12/07/19 06:46 08:43 Temperature 97.1 F L 97.1 F L Pulse Rate 73 77 Respiratory 16 16 Rate Blood Pressure 114/78 106/75 O2 Sat by Pulse 98 Oximetry (%) Laboratory Last Values WBC 6.2 K/mm3 (4.0-10.0) 12/05/19 07:50 RBC 4.17 M/mm3 (3.60-5.2) 12/05/19 07:50 Hgb 11.8 GM/dL (10.7-15.3) 12/05/19 07:50 Hct 36.0 % (32.4-45.2) 12/05/19 07:50 MCV 86.2 fl (80-96) 12/05/19 07:50 MCH 28.2 pg (25.7-33.7) 12/05/19 07:50 MCHC 32.7 g/dl (32.0-36.0) 12/05/19 07:50 RDW 15.5 % (11.6-15.6) 12/05/19 07:50 Plt Count 250 K/MM3 (134-434) 12/05/19 07:50 MPV 8.1 fl (7.5-11.1) 12/05/19 07:50 Sodium 142 mmol/L (136-145) 12/05/19 07:50 Potassium 4.1 mmol/L (3.5-5.1) 12/05/19 07:50 Chloride 108 mmol/L (98-107) H 12/05/19 07:50 Carbon Dioxide 27 mmol/L (21-32) 12/05/19 07:50 Anion Gap 6 MMOL/L (8-16) L 12/05/19 07:50 BUN 22.0 mg/dL (7-18) H 12/05/19 07:50 Creatinine 0.7 mg/dL (0.55-1.3) 12/05/19 07:50 Est GFR (CKD-EPI)AfAm 120.43 12/05/19 07:50 Est GFR (CKD-EPI)NonAf 103.90 12/05/19 07:50 POC Glucometer 102 UNITS (80-120) 12/07/19 06:30 Random Glucose 54 mg/dL (74-106) L 12/05/19 07:50 Calcium 8.9 mg/dL (8.5-10.1) 12/05/19 07:50 Total Bilirubin 0.7 mg/dL (0.2-1) 12/05/19 07:50 AST 27 U/L (15-37) 12/05/19 07:50 ALT 30 U/L (13-61) 12/05/19 07:50 Alkaline Phosphatase 72 U/L (45-117) 12/05/19 07:50 Total Protein 6.6 g/dl (6.4-8.2) 12/05/19 07:50 Albumin 3.6 g/dl (3.4-5.0) 12/05/19 07:50 Syphilis Serology Non-reactive (NONREACTIVE) 12/05/19 07:50 COVID-19 ([facility]) Not detected (Not Detected) 12/04/19 23:30 Labs noted. Assessment: 12/07/19 12:40 AOX3, in no acute respiratory distress. Full ROM, ambulating in the unit. Withdrawal symptoms. Plan: continue detox.
[2019-12-07] MEDS ORDERED: diphenhydrAMINE HCL 25 MG CAPSULE (FP) PO ONE (14:41)
[2019-12-07] MEDS: THIAMINE HCL 100 MG TABLET (FP) PO SCH (22:39)
[2019-12-07] MEDS: MELATONIN 5 MG TABLETS PO SCH (22:39)
[2019-12-08] MEDS ORDERED: chlordiazePOXIDE HCL 10 MG CAPSULE PO SCH (05:00)
[2019-12-08] MEDS: MENTHOL/PHENOL 1 EACH UD MM PRN (07:22)
--- NOTE | 2019-12-08 08:36 | DS ---
[facility] Detox Discharge Summary Admission Date: 12/04/19 Discharge Date: 12/08/19 - History Present History: Alcohol Dependence Additional Comments: 48 years old female was admitted on 12/04/19 for alcohol withdrawal sx management treated with librium detox regiment seen by psychiatrist no medical intervention ms singh prefers to leave the detox today that her on 6n is leaving today alert oriented x 3 speech clearly coherently ambulating with steady gaits General Appearance: Yes: No Apparent Distress, Nourished, Appropriately Dressed HEENTM: Yes: EOMI, Hearing grossly Normal, Normocephalic, Normal Voice Respiratory: Yes: Lungs Clear, Normal Breath Sounds, No Respiratory Distress, No Accessory Muscle Use Neck: Yes: Supple, Trachea in good position Breast: Yes: Breast Exam Deferred Cardiology: Yes: Regular Rhythm, Regular Rate Abdominal: Yes: Normal Bowel Sounds, Non Tender, Flat, Soft Genitourinary: Yes: Other (deferred) Back: Yes: Normal Inspection Musculoskeletal: Yes: Gait Steady Extremities: Yes: Normal Inspection, Normal Range of Motion, Non-Tender Neurological: Yes: Fully Oriented, Alert, Motor Strength 5/5 Integumentary: Yes: Normal Color, Dry, Warm Pertinent Past History: time for discharge 48 minutes treatment team met with ms lynn to discuss the benefit of librium completion ms singh insists to leave today instead of estimated discharge day on 12/09/19 upstairs - Physical Exam Results Vital Signs: Vital Signs Temperature 97.3 F L 12/07/19 21:05 Pulse Rate 76 12/07/19 21:05 Respiratory Rate 18 12/07/19 21:05 Blood Pressure 103/64 12/07/19 21:05 O2 Sat by Pulse Oximetry (%) 100 12/07/19 21:05 Pertinent Admission Physical Exam Findings: alcohol withdrawal Vital Signs - 24 hr 12/07/19 12/07/19 12/08/19 16:59 21:05 07:06 Temperature 97.8 F 97.3 F L 97.5 F L Pulse Rate 78 76 88 Respiratory 18 18 18 Rate Blood Pressure 100/67 103/64 100/67 O2 Sat by Pulse 100 98 Oximetry (%) Laboratory Tests 12/04/19 12/05/19 12/05/19 23:30 07:50 07:50 WBC 6.2 RBC 4.17 Hgb 11.8 Hct 36.0 MCV 86.2 MCH 28.2 MCHC 32.7 RDW 15.5 Plt Count 250 MPV 8.1 Sodium 142 Potassium 4.1 Chloride 108 H Carbon Dioxide 27 Anion Gap 6 L BUN 22.0 H Creatinine 0.7 Est GFR (CKD-EPI)AfAm 120.43 Est GFR (CKD-EPI)NonAf 103.90 POC Glucometer Random Glucose 54 L Calcium 8.9 Total Bilirubin 0.7 AST 27 ALT 30 Alkaline Phosphatase 72 Total Protein 6.6 Albumin 3.6 Syphilis Serology COVID-19 ([facility]) Not detected 12/05/19 12/05/19 12/07/19 07:50 12:44 06:30 WBC RBC Hgb Hct MCV MCH MCHC RDW Plt Count MPV Sodium Potassium Chloride Carbon Dioxide Anion Gap BUN Creatinine Est GFR (CKD-EPI)AfAm Est GFR (CKD-EPI)NonAf POC Glucometer 90 102 Random Glucose Calcium Total Bilirubin AST ALT Alkaline Phosphatase Total Protein Albumin Syphilis Serology Non-reactive COVID-19 ([facility]K) 12/07/19 16:40 WBC RBC Hgb Hct MCV MCH MCHC RDW Plt Count MPV Sodium Potassium Chloride Carbon Dioxide Anion Gap BUN Creatinine Est GFR (CKD-EPI)AfAm Est GFR (CKD-EPI)NonAf POC Glucometer 106 Random Glucose Calcium Total Bilirubin AST ALT Alkaline Phosphatase Total Protein Albumin Syphilis Serology COVID-19 ([facility]) lab noted - Treatment Hospital Course: Detox Protocol Followed, Detoxed Safely, Responded well, Discharged Condition Good, Rehab Referral Accepted Patient has Accepted a Rehab Referral to: [facility] - Medication Discharge Medications: Ambulatory Orders Albuterol Sulfate Inhaler - [Ventolin HFA Inhaler -] 2 inh PO Q4H PRN #1 inhaler 12/08/19 - Diagnosis (1) Alcohol dependence with withdrawal, uncomplicated Status: Acute (2) Nicotine dependence Status: Acute Qualifiers: Nicotine product type: cigarettes Substance use status: in withdrawal Qualified Code(s): F17.213 - Nicotine dependence, cigarettes, with withdrawal (3) Substance induced mood disorder Status: Suspected (4) Asthma Status: Chronic Qualifiers: Asthma severity: mild Asthma persistence: intermittent Asthma complication type: with status asthmaticus Qualified Code(s): J45.22 - Mild intermittent asthma with status asthmaticus - AMA Did Patient Leave Against Medical Advice: No CIWA Score - CIWA Score Nausea/Vomitin-No Nausea/No Vomiting Muscle Tremors: None Anxiety: 1-Mildly Anxious Agitation: 1-Slight > Activity Paroxysmal Sweats: 1-Minimal Palms Moist Orientation: 0-Oriented Tacttile Disturbances: 0-None Auditory Disturbances: 0-None Visual Disturbances: 0-None Headache: 1-Very Mild CIWA-Ar Total Score: 4
[2019-12-08 09:12] VITALS: BP 100/67; PULSE 88; TEMP 97.5
[2019-12-09] MEDS ORDERED: chlordiazePOXIDE HCL 10 MG CAPSULE PO ONE (05:00)
== END 2019-12-08 09:23 | disposition home or self-care (01) | DRG 774 ==
LOC: YASAS 17:49 → Y3N 20:36
PROVIDERS: ADMIT Allergy & Immunology; ATTEND Allergy & Immunology
DX: F10.230 Alcohol dependence with withdrawal, uncomplicated (principal); F14.20 Cocaine dependence, uncomplicated; F17.213 Nicotine dependence, cigarettes, with withdrawal; F19.282 Other psychoactive substance dependence with psychoactive substance-induced sleep disorder; F19.24 Other psychoactive substance dependence with psychoactive substance-induced mood disorder; J45.20 Mild intermittent asthma, uncomplicated; M54.5 Low back pain; G89.29 Other chronic pain; Z86.2 Personal history of diseases of the blood and blood-forming organs and certain disorders involving the immune mechanism; Z90.49 Acquired absence of other specified parts of digestive tract; Z56.0 Unemployment, unspecified; Z59.0 Homelessness; Z88.0 Allergy status to penicillin; Z91.013 Allergy to seafood; Z91.018 Allergy to other foods
CPT/HCPCS: 36415; 80053; 82962; 85027; 86780; U0003

== ENCOUNTER 2023-04-17 20:21 | Inpatient (IN) | payer OTHER ==
[2023-04-17 22:03] VITALS: BMI 19.9
[2023-04-18] MEDS ORDERED: hydrOXYzine PAMOATE 25 MG CAPSULE (FP) PO PRN (00:06)
[2023-04-18] MEDS ORDERED: METHOCARBAMOL 500 MG TABLET PO PRN (00:06)
[2023-04-18] MEDS ORDERED: NALOXONE HCL (KLOXXADO) 8 MG SPRAY NS PRN (00:06)
[2023-04-18] MEDS ORDERED: MAG HYDROX/AL HYDROX/SIMETH 30 ML UNIT-DOSE CUP PO PRN (00:06)
[2023-04-18] MEDS ORDERED: IBUPROFEN 400 MG TABLET (FP) PO PRN (00:06)
[2023-04-18] MEDS ORDERED: LOPERAMIDE HCL 2 MG CAPSULE PO PRN (00:06)
[2023-04-18] MEDS ORDERED: ACETAMINOPHEN 325 MG TABLET (FP) PO PRN (00:06)
[2023-04-18] MEDS ORDERED: MAGNESIUM HYDROX 2400MG/30ML ORAL SUSPENSION 30 ML CUP PO PRN (00:06)
[2023-04-18] MEDS ORDERED: BISMUTH SUBSALICYLATE 524 MG/30 ML PO PRN (00:06)
[2023-04-18] MEDS ORDERED: BENZONATATE 200 MG CAPSULE PO PRN (00:06)
[2023-04-18] MEDS ORDERED: NICOTINE POLACRILEX 2 MG GUM BUC PRN (00:06)
[2023-04-18] MEDS ORDERED: POLYETHYLENE GLYCOL (HEALTHYLAX) 3350 17 GM PACKET PO PRN (00:06)
[2023-04-18] MEDS ORDERED: guaiFENesin 600 MG TABLET.ER (FP) PO PRN (00:06)
[2023-04-18] MEDS ORDERED: NALOXONE HCL 0.4 MG/ML VIAL IM PRN (00:06)
[2023-04-18] MEDS: PRENATAL VITAMINS W/ FOLIC ACID TABLET (FP) PO SCH (09:28)
[2023-04-18] MEDS: NICOTINE 21 MG/24 HOURS TOPICAL PATCH TD SCH (09:28)
[2023-04-18] MEDS: ONDANSETRON *ODT* 4 MG TABLET SL PRN (17:57)
[2023-04-18] MEDS: THIAMINE HCL 100 MG TABLET (FP) PO SCH (22:11)
[2023-04-18] MEDS: MELATONIN 5 MG TABLETS PO SCH (22:11)
[2023-04-19] MEDS: BENZOCAINE/MENTHOL (CHLORASEPTIC ) LOZENGE MM PRN (09:34)
[2023-04-19] MEDS: IBUPROFEN 600 MG TABLET (FP) PO PRN (09:34)
[2023-04-19] MEDS ORDERED: diazePAM 5 MG TABLET PO PRN (09:50)
[2023-04-19] MEDS ORDERED: ALBUTEROL SO4 HFA INHALER IH PRN (09:50)
[2023-04-19] MEDS: diazePAM 5 MG TABLET PO SCH (10:18)
[2023-04-19 12:13] LABS: HEMATOCRIT 35.3 % (32.4-45.2); HEMOGLOBIN 11.8 GM/dL (10.7-15.3); MCH 28.5 pg (25.7-33.7); MCHC 33.5 g/dl (32.0-36.0); MEAN CELL VOLUME 85.1 fl (80-96); MEAN PLT VOLUME 7.8 fl (7.5-11.1); PLATELET COUNT 329 10^3/uL (134-434); RBC 4.15 M/mm3 (3.60-5.2); RDW 15.3 % (11.6-15.6)
[2023-04-19 12:22] LABS: POTASSIUM 4.7 mmol/L (3.5-5.1)
[2023-04-19 12:28] LABS: ALBUMIN 3.6 g/dl (3.4-5.0)
[2023-04-19 12:31] LABS: CREATININE 0.6 mg/dL (0.55-1.3)
[2023-04-19 12:32] LABS: BILIRUBIN,TOTAL 0.3 mg/dL (0.2-1)
[2023-04-19 12:33] LABS: TOT PROT 6.8 g/dl (6.4-8.2)
[2023-04-21] MEDS: diazePAM 5 MG TABLET PO SCH (06:11)
[2023-04-21 09:49] VITALS: BP 101/71; PULSE 71; RESP 16; TEMP 96.9
[2023-04-22] MEDS ORDERED: diazePAM 5 MG TABLET PO SCH (06:00)
[2023-04-23] MEDS ORDERED: diazePAM 5 MG TABLET PO ONE (06:00)
== END 2023-04-21 09:57 | disposition left against medical advice (07) | DRG 770 ==
LOC: YASAS 20:21 → Y3N 04-18 02:29
PROVIDERS: ADMIT Allergy & Immunology; ATTEND Allergy & Immunology
PROC: HZ2ZZZZ Detoxification Services for Substance Abuse Treatment (ICD-10-PCS; principal; 2023-04-18)
DX: F10.230 Alcohol dependence with withdrawal, uncomplicated (principal); F14.20 Cocaine dependence, uncomplicated; F17.210 Nicotine dependence, cigarettes, uncomplicated; F31.9 Bipolar disorder, unspecified; D50.9 Iron deficiency anemia, unspecified; J45.20 Mild intermittent asthma, uncomplicated; Z28.310 Unvaccinated for COVID-19; Z28.9 Immunization not carried out for unspecified reason; Z56.0 Unemployment, unspecified
CPT/HCPCS: 36415; 80053; 80307; 81025; 85027; 86780; 87635; 93005; 93010; Q0162